=== PATIENT | male | born 1935 | race Caucasian/White ===

== ENCOUNTER → 2020-06-12 14:00 | Outpatient (BNVA) | payer MEDICARE, SELFPAY | PROVIDERS: PCP Internal Medicine; Visit Provider Internal Medicine Cardiovascular Disease | DX: I48.91 Unspecified atrial fibrillation (principal) | CPT/HCPCS: 93005; 99212 ==

== ENCOUNTER 2020-11-10 13:01 | Outpatient (REF) | payer MEDICARE, SELFPAY ==
[2020-11-10 14:16] LABS: MANUAL DIFF FLAG NO
[2020-11-10 14:26] LABS: Basophils Percent Auto 0.4 % (0-2); Eosinophils Absolute Auto 0.2 X10*3/uL (0.0-0.4); Eosinophils Percent Auto 2.9 % (0-4); Hematocrit 41.1 % (42-52); Hemoglobin 14.1 g/dl (14.0-18.0); Imm Gran Abs Auto 0.02 X10*3/uL (0.00-0.03); Imm Gran Pct Auto 0.3 % (0.0-0.4); Lymphocytes Absolute Auto 1.6 X10*3/uL (1.2-4.9); Lymphocytes Percent Auto 20.7 % (20-40); Mean Corpuscular HGB Conc 34.3 g/dl (31.0-36.0); Mean Corpuscular Hemoglobin 31.3 pg (27.0-33.0); Mean Corpuscular Volume 91.3 fL (80-98); Mean Platelet Volume 14.1 fL (9.4-12.4); Monocytes Absolute Auto 0.7 X10*3/uL (0.1-1.2); Monocytes Percent Auto 8.6 % (2-11); Neutrophils Absolute Auto 5.3 X10*3/uL (2.0-8.3); Neutrophils Percent Auto 67.1 % (45-73); Platelet Count 172 X10*3/uL (160-400); Red Cell Distribution Width 12.9 % (11.0-16.0); White Blood Count 7.9 X10*3/uL (4.8-10.8)
[2020-11-10 15:30] LABS: Alanine Aminotransferase 17 U/L (0-40); Alkaline Phosphatase 74 U/L (39-117); Anion Gap 16 (12-20); Aspartate Amino Transferase 16 U/L (5-37); Blood Urea Nitrogen 34 mg/dL (9-16); Calcium 9.2 mg/dL (8.4-10.2); Carbon Dioxide 21 mmol/L (22-29); Chloride 101 mmol/L (96-108); Estimated Glomerular Filt Rate 32; Glucose Random 99 mg/dL (60-115); Sodium 133 mmol/L (135-145); Total Protein 6.4 g/dL (6.5-8.0)
== END 2020-11-10 13:02 | disposition home or self-care (01) ==
LOC: HO.LAB 13:01
PROVIDERS: PCP Internal Medicine; Visit Provider Internal Medicine
DX: E78.00 Pure hypercholesterolemia, unspecified (principal); I48.19 Other persistent atrial fibrillation; I12.9 Hypertensive chronic kidney disease with stage 1 through stage 4 chronic kidney disease, or unspecified chronic kidney disease; N18.9 Chronic kidney disease, unspecified; Z79.01 Long term (current) use of anticoagulants
CPT/HCPCS: 36415; 80053; 85025

== ENCOUNTER 2021-03-12 14:09 | Outpatient (REF) | payer MEDICARE, SELFPAY ==
[2021-03-12 15:11] LABS: MANUAL DIFF FLAG SCAN; Monocytes Absolute Auto 0.8 X10*3/uL (0.1-1.2); Monocytes Percent Auto 8.4 % (2-11); SCAN SMEAR FLAG 1
[2021-03-12 15:13] LABS: Basophils Percent Auto 0.4 % (0-2); Eosinophils Absolute Auto 0.2 X10*3/uL (0.0-0.4); Eosinophils Percent Auto 2.6 % (0-4); Hematocrit 41.6 % (42-52); Hemoglobin 14.5 g/dl (14.0-18.0); Imm Gran Abs Auto 0.03 X10*3/uL (0.00-0.03); Imm Gran Pct Auto 0.3 % (0.0-0.4); Lymphocytes Absolute Auto 1.5 X10*3/uL (1.2-4.9); Lymphocytes Percent Auto 16.5 % (20-40); Mean Corpuscular HGB Conc 34.9 g/dl (31.0-36.0); Mean Corpuscular Hemoglobin 31.4 pg (27.0-33.0); Neutrophils Absolute Auto 6.4 X10*3/uL (2.0-8.3); Neutrophils Percent Auto 71.8 % (45-73); Platelet Count 159 X10*3/uL (160-400); Red Blood Count 4.62 X10*6/uL (4.60-5.80); Red Cell Distribution Width 12.9 % (11.0-16.0)
[2021-03-12 15:24] LABS: PLT ABN DIST 1
[2021-03-12 15:33] LABS: Alanine Aminotransferase 16 U/L (0-40); Albumin Level 4.2 g/dL (3.5-5.0); Alkaline Phosphatase 78 U/L (39-117); Anion Gap 16 (12-20); Aspartate Amino Transferase 19 U/L (5-37); Bilirubin Total 0.9 mg/dL (0.0-1.0); Blood Urea Nitrogen 27 mg/dL (9-16); Calcium 9.1 mg/dL (8.4-10.2); Carbon Dioxide 21 mmol/L (22-29); Chloride 97 mmol/L (96-108); Estimated Glomerular Filt Rate 32; Glucose Random 96 mg/dL (60-115); Potassium 4.5 mmol/L (3.3-5.1); Sodium 129 mmol/L (135-145); Total Protein 6.5 g/dL (6.5-8.0)
[2021-03-12 15:36] LABS: SLIDE REVIEW VERIFIED
== END 2021-03-12 14:10 | disposition home or self-care (01) ==
LOC: HO.LAB 14:09
PROVIDERS: PCP Internal Medicine; Visit Provider Internal Medicine
DX: E78.00 Pure hypercholesterolemia, unspecified (principal); I12.9 Hypertensive chronic kidney disease with stage 1 through stage 4 chronic kidney disease, or unspecified chronic kidney disease; N18.9 Chronic kidney disease, unspecified; I48.19 Other persistent atrial fibrillation; K22.70 Barrett's esophagus without dysplasia; Z79.01 Long term (current) use of anticoagulants
CPT/HCPCS: 36415; 80053; 85025

== ENCOUNTER 2021-06-07 10:29 | Inpatient (IN) | payer MEDICARE, SELFPAY ==
[2021-06-07] VITALS (8 sets, daily range): BP systolic 99–140; BP diastolic 60–78; PULSE 82–114; RESP 16–26; TEMP 36.6–37; O2SAT 92–95; BMI 29.7
--- NOTE | ~2021-06-07 | XR_ITS ---
EXAMINATION: XR CHEST CLINICAL INFORMATION: Shortness of breath, pneumonia COMPARISON: Chest radiographs 07/13/2018 TECHNIQUE: Portable upright AP view of the chest was obtained. FINDINGS: Heart is normal in size. The vascularity is normal. There is mild coarsening bronchiolar markings. No hyperinflation and no lobar or segmental airspace consolidation or effusion. No definite groundglass opacity. Short disc atelectasis right lateral base. The hilar and mediastinal contours are normal. No visible acute bony abnormality. XR/XR chest 1V IMPRESSION: 1. Mild coarsening bronchiolar markings. Disc atelectasis right base. 2. No vascular engorgement, airspace consolidation, or effusion. Disc atelectasis right base.
--- NOTE | ~2021-06-07 | XR_ITS ---
EXAMINATION: XR CHEST CLINICAL INFORMATION: Acute hypoxemia and respiratory failure secondary to Covid. COMPARISON: None TECHNIQUE: Frontal view of the chest was obtained. FINDINGS: The lungs are expanded with scattered patchy density seen in both upper lobes suspicious for infiltrate. There is no contrast consolidation. There is no pleural effusion. The heart size is enlarged with normal pulmonary vascularity. No gross bony abnormality seen. XR/XR chest 1V IMPRESSION: Scattered patchy density in both upper lobes suggestive of infiltrates.
--- NOTE | ~2021-06-07 | XR_ITS ---
EXAMINATION: XR CHEST CLINICAL INFORMATION: Increased work of breathing. Hypoxia. COMPARISON: 06/10/2021 TECHNIQUE: Frontal view of the chest was obtained. FINDINGS: Cardiac leads overlie the chest. The lungs are well expanded. Diffuse bronchial wall thickening with hazy opacities. This is worse when compared to previous. There is no focal consolidation, edema, or effusion. No pneumothorax. The cardiomediastinal silhouette is within normal limits. No acute osseous abnormality. XR/XR chest 1V IMPRESSION: Diffuse bronchial wall thickening with hazy opacities, worse when compared to prior suggestive of infectious or inflammatory process.
--- NOTE | ~2021-06-07 | CT_ITS ---
EXAMINATION: CT CHEST WITHOUT CONTRAST CLINICAL INFORMATION: COVID pneumonia. COMPARISON: Chest x-ray 06/07/2021 TECHNIQUE: Multidetector volumetric CT imaging of the chest was done. Axial MIP volume rendering provided. Sagittal and coronal reformatted images were obtained. This CT examination was performed using dose optimization techniques as appropriate, variously including the following: *Automated exposure control *Adjustment of mA and/or kV according to patient size (this includes techniques or standardized protocols for targeted exams where dose is matched to indication/reason for exam; i.e. extremities or head) *Use of iterative reconstruction technique DLP: 280 mGy-cm FINDINGS: EARTH SCIENCE PROFESSOR: Well-inflated lungs. LUNGS: The lungs are expanded with patchy groundglass attenuation seen in the dependent segments of both upper lobes right greater than left, dependent segment right lower lobe lateral, lateral lingula segment and dependent segments of both lung bases suspicious of diffuse inflammatory changes/infiltrate. There is focal bronchiectasis left lower lobe posterior basal segment. There is a 3 mm fuzzy nodule in the right right middle lobe adjacent to the major fissure on image 31/4. This may represent part of developing infiltrate or atelectasis. MEDIASTINUM: The thyroid lobes are symmetric and normal. The central trachea and the bronchi widely patent. The heart size and great vessels are normal caliber. There are small shotty lymph nodes in the para-aortic and pretracheal space. The largest short axis para-aortic lymph node measures 6 mm on axial image 22/3. A small hiatal hernia is noted. PLEURA: There is minimal left posterior pleural thickening. There is no pleural effusion.. AXILLA: No lymphadenopathy. UPPER ABDOMEN: Unremarkable. OSSEOUS STRUCTURES: No lytic or sclerotic process seen. There is mild spondylosis mid and lower ventral dorsal spine. CT/CT chest wo con IMPRESSION: Diffuse bilateral patchy groundglass attenuation seen throughout both lungs consistent with infiltrates. There are small mediastinal lymph nodes which are likely reactive and measure less than 6 mm in short axis. Small hiatal hernia. Fleischner guidelines were followed.
--- NOTE | 2021-06-07 10:37 | ECG_ITS ---
Test Reason : SOB Blood Pressure : / mmHG Vent. Rate : 103 BPM Atrial Rate : 000 BPM P-R Int : 000 ms QRS Dur : 088 ms QT Int : 334 ms P-R-T Axes : 000 -28 -31 degrees QTc Int : 437 ms Atrial fibrillation with rapid ventricular response Minimal voltage criteria for LVH, may be normal variant ( R in aVL ) ST & T wave abnormality, consider anterior ischemia Abnormal ECG When compared with ECG of 19-JUN-2018 22:16, Inverted T waves have replaced nonspecific T wave abnormality in Inferior leads T wave inversion now evident in Anterior leads Referred By: Generic ED Physician Electronically Signed By:TORIN LEON MD
[2021-06-07 12:12] LABS: MANUAL DIFF FLAG NO
[2021-06-07 12:14] LABS: Basophils Percent Auto 0.3 % (0-2); Eosinophils Percent Auto 0.1 % (0-4); Hematocrit 42.5 % (42.0-52.0); Hemoglobin 14.5 g/dl (14.0-18.0); Imm Gran Abs Auto 0.02 X10*3/uL (0.00-0.03); Imm Gran Pct Auto 0.3 % (0.0-0.4); Lymphocytes Absolute Auto 0.5 X10*3/uL (1.2-4.9); Lymphocytes Percent Auto 6.2 % (20-40); Mean Corpuscular HGB Conc 34.1 g/dl (31.0-36.0); Mean Corpuscular Hemoglobin 31.1 pg (27.0-33.0); Mean Corpuscular Volume 91.2 fL (80.0-98.0); Mean Platelet Volume 12.5 fL (9.4-12.4); Monocytes Absolute Auto 0.4 X10*3/uL (0.1-1.2); Monocytes Percent Auto 5.7 % (2-11); Neutrophils Absolute Auto 6.8 x10*3/uL (2.0-8.3); Neutrophils Percent Auto 87.4 % (45-73); Platelet Count 124 X10*3/uL (160-400); Red Blood Count 4.66 X10*6/uL (4.60-5.80); White Blood Count 7.7 X10*3/uL (4.8-10.8)
[2021-06-07 12:22] LABS: COVID-19 Test Positive (Negative); IDNOW Serial# 9DD0AD1C; INTERNATIONAL NORM RATIO 2.2 (0.9-1.1); Prothrombin Time 24.9 SEC (9.9-13.0)
[2021-06-07 12:25] LABS: Partial Thromboplastin Time 40.8 SEC (24.1-38.0)
--- NOTE | 2021-06-07 12:26 | ED_ITS ---
HPI - SOB/Dyspnea General Chief Complaint: Dyspnea Stated Complaint: diff breathing Time Seen by Provider: 06/07/21 11:29 Source: patient Mode of arrival: ambulatory Limitations: no limitations History of Present Illness HPI Narrative: 85-year-old male with past medical history of atrial fibrillation presents to ED for chills, body ache, dry cough, and shortness of breath on exertion for 1 week. Patient unknown of any exposure to COVID and denies any recent long travel, leg swelling, calf pain, coughing up blood, or chest pain. Patient states he is vaccinated against the COVID-19 virus. Related Data Home Medications Medication Instructions Recorded Confirmed apixaban 5 mg tablet 5 mg PO BID 06/12/20 06/07/21 metoprolol succinate 50 mg 50 mg PO DAILY 06/12/20 06/07/21 tablet,extended release 24 hr omeprazole 20 mg capsule,delayed 20 mg PO DAILY 06/12/20 06/07/21 release simvastatin 20 mg tablet 20 mg PO BEDTIME 06/12/20 06/07/21 lisinopril 10 mg tablet 1 tab PO DAILY 06/07/21 06/07/21 Allergies Allergy/AdvReac Type Severity Reaction Status Date / Time No Known Allergies Allergy Unverified 03/09/20 19:34 [No Known Allergies*] Review of Systems Review of Systems: Yes all other systems are reviewed and are negative Constitutional: Constitutional: Reports as per HPI, Reports no additional constitutional complaints, Reports body ache(s) and Reports chills Eyes: Eyes: Reports as per HPI and Reports no additional eye complaints ENT: Reports system reviewed and no additional complaints, except as documented and Reports as per HPI Cardiovascular: Cardiovascular: Reports as per HPI, Reports no additional c ardiovascular complaints and Reports dyspnea Respiratory: Respiratory: Reports as per HPI, Reports no additional respiratory complaints, Reports cough and Reports dyspnea Gastrointestinal: Gastrointestinal: Reports as per HPI and Reports no additional gastrointestinal complaints Genitourinary: Genitourinary: Reports no additional male genitourinary complaints and Reports as per HPI Musculoskeletal: Musculoskeletal: Reports no additional musculoskeletal complaints and Reports as per HPI Neurologic: Reports system reviewed and no additional complaints, except as documented and Reports as per HPI Psychiatric: Psychiatric: Reports no additional psychiatric complaints and Reports as per HPI [facility] Past Medical History Medical History Afib Hiatal hernia Surgical History History of total left knee replacement (TKR) Hx of cholecystectomy Social History Social History Patient Tobacco Use Status: Former Tobacco user Physical Exam Vital Signs: Vital Signs: Last Vital Signs Temp 98 F 06/07/21 17:15 Pulse 96 06/07/21 17:15 Resp 18 06/07/21 17:15 BP 140/70 H 06/07/21 17:15 Pulse Ox 95 06/07/21 17:15 BMI result Body Mass Index 29.7 Const: General: cooperative, healthy appearing, comfortable, no acute di stress, well developed, alert, awake and Physically active Orientation/consciousness: patient oriented x3 HENMT: Head: Yes normal to inspection, Yes No palpable skull fracture present, Yes normocephalic, Yes atraumatic and No abrasion Eyes: General: appearance normal, both eyes and all related structures Neck: Neck: Yes normal visual inspection, Yes full ROM, Yes no lymphadenopathy, Yes no meningeal signs, Yes trachea midline, No supple, No anterior neck swelling and No tender Chest: Chest palpation & inspection: normal inspection of the chest and normal palpation of entire chest wall Resp: Effort & Inspection: normal respiratory effort and able to speak in complete sentences Auscultation: clear to auscultation bilaterally Cardio: Jugular venous distension: no JVD Heart sounds: S1 normal heart sound present and S2 normal heart sound present GI: Inspection: Yes normal to inspection and No abdominal wall ecchymosis Palpation (GI): Soft to palpation, not firm, nontender, no guarding and not rigid : General: No CVA tenderness and Yes no CVA tenderness Back/Spine/Pelvis: Back: no CVA tenderness, No CVA tenderness and No back tenderness Skin: General skin exam: no rashes or lesions noted and elasticity normal Neuro: General: patient oriented x3, gait normal, no meningeal signs and CN's II-XI intact bilaterally Cranial nerves: Yes CN's II-XII intact bilaterally Extrem: Other: Lower extremities negative for swelling, pitting edema,or calf General: Yes normal to inspection and Yes full ROM Psych: Appearance: grossly normal, well kempt and not disheveled Course Course Course Narrative: Patient's symptoms sound like infectious but due to age will do cardiac evaluation, chest x-ray, and COVID swab. Reevaluation(s) Reevaluation #1: Patient's COVID swab positive. Will re-evaluate patient. Will do ambulatory oxygen saturation Time: 12:31 Reevaluation #2: Cannot do chest CTA due to patient's GFR of 24. Patient desaturated to 90% with shortness of breath on exertion. Dry chest CT shows COVID pneumonia. Decadron started. Time: 15:10 Reevaluation #3: Patient admitted to the ED for COVID pneumonia. MDM - SOB/Dyspnea MDM Narrative Medical decision making narrative: COVID Lab Data Result diagrams: 06/07/21 12:03 06/07/21 12:38 Labs: Lab Results 06/07/21 06/07/21 06/07/21 Range/Units 12:03 12:03 12:03 WBC 7.7 (4.8-10.8) X10*3/uL RBC 4.66 (4.60-5.80) X10*6/uL Hgb 14.5 (14.0-18.0) g/dl Hct 42.5 (42.0-52.0) % MCV 91.2 (80.0-98.0) fL MCH 31.1 (27.0-33.0) pg MCHC 34.1 (31.0-36.0) g/dl RDW 13.0 (11.0-16.0) % Plt Count 124 L (160-400) X10*3/uL MPV 12.5 H (9.4-12.4) fL Immature Gran % (Auto) 0.3 (0.0-0.4) % Neut % (Auto) 87.4 H (45-73) % Lymph % (Auto) 6.2 L (20-40) % [place] % (Auto) 5.7 (2-11) % Eos % (Auto) 0.1 (0-4) % Baso % (Auto) 0.3 (0-2) % Lymph # (Auto) 0.5 L (1.2-4.9) X10*3/uL [place] # (Auto) 0.4 (0.1-1.2) X10*3/uL Eos # (Auto) 0.0 (0.0-0.4) X10*3/uL Baso # (Auto) 0.0 (0.0-0.2) X10*3/uL Abs Immat Gran (auto) 0.02 (0.00-0.03) X10*3/uL Absolute Neuts (auto) 6.8 (2.0-8.3) x10*3/uL Absolute Nucleated RBC 0.000 (0.0-0.012) X10*3/uL Nucleated RBC % (auto) 0.0 (0.0-0.2) /100WBC PT 24.9 H (9.9-13.0) SEC INR 2.2 H (0.9-1.1) APTT 40.8 H (24.1-38.0) SEC Sodium (135-145) mmol/L Potassium (3.3-5.1) mmol/L Chloride (96-108) mmol/L Carbon Dioxide (22-29) mmol/L Anion Gap (12-20) BUN (9-16) mg/dL Creatinine (0.5-1.4) mg/dL Estim Creat Clear Calc Estimated GFR Random Glucose (60-115) mg/dL Calcium (8.4-10.2) mg/dL Ferritin (20-250) ng/mL Total Bilirubin (0.0-1.0) mg/dL AST (5-37) U/L ALT (0-40) U/L Alkaline Phosphatase (39-117) U/L Lactate Dehydrogenase (118-273) U/L Troponin I High Sens 19.3 (<3.5-35.0) ng/L C-Reactive Protein (< or = 0.50) mg/dL B-Natriuretic Peptide 58 (<100) pg/mL Total Protein (6.5-8.0) g/dL Albumin (3.5-5.0) g/dL Procalcitonin ng/mL COVID-19 (DIONNE) (Negative) COVID-19 Clin Com 06/07/21 06/07/21 06/07/21 Range/Units 12:03 12:38 12:38 WBC (4.8-10.8) X10*3/uL RBC (4.60-5.80) X10*6/uL Hgb (14.0-18.0) g/dl Hct (42.0-52.0) % MCV (80.0-98.0) fL MCH (27.0-33.0) pg MCHC (31.0-36.0) g/dl RDW (11.0-16.0) % Plt Count (160-400) X10*3/uL MPV (9.4-12.4) fL Immature Gran % (Auto) (0.0-0.4) % Neut % (Auto) (45-73) % Lymph % (Auto) (20-40) % [place] % (Auto) (2-11) % Eos % (Auto) (0-4) % Baso % (Auto) (0-2) % Lymph # (Auto) (1.2-4.9) X10*3/uL [place] # (Auto) (0.1-1.2) X10*3/uL Eos # (Auto) (0.0-0.4) X10*3/uL Baso # (Auto) (0.0-0.2) X10*3/uL Abs Immat Gran (auto) (0.00-0.03) X10*3/uL Absolute Neuts (auto) (2.0-8.3) x10*3/uL Absolute Nucleated RBC (0.0-0.012) X10*3/uL Nucleated RBC % (auto) (0.0-0.2) /100WBC PT (9.9-13.0) SEC INR (0.9-1.1) APTT (24.1-38.0) SEC Sodium 133 L (135-145) mmol/L Potassium 4.3 (3.3-5.1) mmol/L Chloride 102 (96-108) mmol/L Carbon Dioxide 21 L (22-29) mmol/L Anion Gap 14 (12-20) BUN 36 H (9-16) mg/dL Creatinine 2.59 H (0.5-1.4) mg/dL Estim Creat Clear Calc 22.6 Estimated GFR 24 Random Glucose 117 H (60-115) mg/dL Calcium 8.5 D (8.4-10.2) mg/dL Ferritin 359 H (20-250) ng/mL Total Bilirubin 1.0 (0.0-1.0) mg/dL AST 34 D (5-37) U/L ALT 24 (0-40) U/L Alkaline Phosphatase 73 (39-117) U/L Lactate Dehydrogenase 290 H (118-273) U/L Troponin I High Sens (<3.5-35.0) ng/L C-Reactive Protein 10.45 H (< or = 0.50) mg/dL B-Natriuretic Peptide (<100) pg/mL Total Protein 6.4 L (6.5-8.0) g/dL Albumin 3.6 (3.5-5.0) g/dL Procalcitonin 0.40 ng/mL COVID-19 (DIONNE) Positive A (Negative) COVID-19 Clin Com See Note ECG Data Interpretation: Atrial fibrillation with RVR. Reticular 103. QRS 88. QTC 437. Negative Stemi Discharge Plan Discharge Clinical Impression: Acute kidney injury Patient Disposition: Admitted As Inpatient Interventions: Admission Worksheet (ED) Last Done: 06/07/21 17:01 Discharge Date/Time: 06/07/21 17:02
[2021-06-07 12:41] LABS: B Type Natriuretic Peptide 58 pg/mL (<100); Troponin-I High Sensitivity 19.3 ng/L (<3.5-35.0)
[2021-06-07 13:01] LABS: Alanine Aminotransferase 24 U/L (0-40); Albumin Level 3.6 g/dL (3.5-5.0); Alkaline Phosphatase 73 U/L (39-117); Anion Gap 14 (12-20); Aspartate Amino Transferase 34 U/L (5-37); Blood Urea Nitrogen 36 mg/dL (9-16); Calcium 8.5 mg/dL (8.4-10.2); Carbon Dioxide 21 mmol/L (22-29); Chloride 102 mmol/L (96-108); Creatinine Clr Calc Pharmacy 22.6; Estimated Glomerular Filt Rate 24; Glucose Random 117 mg/dL (60-115); Lactate Dehydrogenase 290 U/L (118-273); Potassium 4.3 mmol/L (3.3-5.1); Sodium 133 mmol/L (135-145); Total Protein 6.4 g/dL (6.5-8.0)
[2021-06-07 13:21] LABS: Ferritin 359 ng/mL (20-250)
[2021-06-07] MEDS: 0.9 % Sodium Chloride Flush 3 ML SYRINGE IVFLUSH ×2 (15:59→20:18)
[2021-06-07] MEDS: 0.9 % Sodium Chloride 1,000 ML 999 ML IV (15:59)
[2021-06-07] MEDS: dexAMETHasone sod phosphate 10 MG/ML VIAL IVPUSH (15:59)
--- NOTE | 2021-06-07 16:04 | PM.IMHP ---
History of Present Illness Date of Service: 06/07/21 Attending physician on admission: Maureen Ramos Chief Complaint: doris , covid pneumonia 85-year-old male with past medical history of chronic AFib, hypertension, hypercholesteremia, patient said that he had COVID vaccines back in , did not received booster yet. Patient is having generally weak and decreased p.o. intake as well as more sleepiness from last week or so. he also has somewhat shortness of breath with walking from 5-6 days as per the patient. patient says that he has cough with clear sputum but otherwise denies any fever or any sick contacts or recent travel or going to and [employer]. ED physician given the admission for COVID pneumonia- patient saturation dropped to 90 with walking. Denies any new complaint of chest pain or abdominal pain or chills or nausea or vomiting or diarrhae Denies any cough Denies any weakness or numbness. Lab imaging reviewed: ekg seems similar but has t wave inversion in antieror leads trops normal ct chest: possible pneumonia has doris also Review of Systems Review of Systems: as above. Yes all other systems are reviewed and are negative [facility] Medical History Afib Hiatal hernia Pertinent family history: denies any family member has COVID. Surgical History History of total left knee replacement (TKR) Hx of cholecystectomy Social History Patient Tobacco Use Status: Former Tobacco user Use of substances other than those prescribed or required for medical reasons: No Advance Directives: Yes Advance Directives Information Provided: No Advance Directives on File: No Meds Allergies Allergy/AdvReac Type Severity Reaction Status Date / Time No Known Allergies Allergy Unverified 03/09/20 19:34 [No Known Allergies*] Active Medications: Current Medications Dexamethasone Sodium Phosphate (Dexamethasone Sod Phosphate 4 Mg/Ml Vial) 6 mg IVPUSH DAILY VERO Sodium Chloride (Ns) 1,000 mls @ 999 mls/hr IV .Q1H1M STA Stop: 06/07/21 16:27 Last Admin: 06/07/21 15:59 Dose: 999 mls/hr Documented by: Pharmacy Consult (Consult Rx Perform Med Rec) 1 each MISCELLANE ONCE PRN PRN Reason: Consult order Sodium Chloride (0.9 % Sodium Chloride Flush 3 Ml Syringe) 3 ml IVFLUSH QSHIFT [facility] Last Admin: 06/07/21 15:59 Dose: 3 ml Documented by: Home Medications Medication Instructions Recorded Confirmed Last Taken Type apixaban 5 mg tablet 5 mg PO BID 06/12/20 06/07/21 Unknown History metoprolol succinate 50 mg 50 mg PO DAILY 06/12/20 06/07/21 Unknown History tablet,extended release 24 hr omeprazole 20 mg capsule,delayed 20 mg PO DAILY 06/12/20 06/07/21 Unknown History release simvastatin 20 mg tablet 20 mg PO BEDTIME 06/12/20 06/07/21 Unknown History lisinopril 10 mg tablet 1 tab PO DAILY 06/07/21 06/07/21 Unknown History Physical Exam Vital Signs and Narrative: Vital Signs: Last Vital Signs Temp 98.0 F 06/07/21 11:27 Pulse 84 06/07/21 15:59 Resp 20 06/07/21 15:59 BP 108/63 06/07/21 15:59 Pulse Ox 95 06/07/21 15:59 BMI result Body Mass Index 29.7 physical exam: Appearance: Alert.? Oriented X3.? not in distress.? Eyes: Pupils equal, round and reactive to light.? Sclera nonicteric.? ENT: Pharynx normal.? Moist mucous membranes. cvs: rrr, [id number] , no murmur res: fair air entry ,no rhonchii or wheezing abd: no rebound or guarding ,nt, bs present. ext pulses present , no cyanosis . neuro: axo3 , nonfocal. Results Labs CBC and Chem 7: 06/07/21 12:03 06/07/21 12:38 Labs: Laboratory Results - last 24 hr 06/07/21 06/07/21 06/07/21 12:03 12:03 12:03 MCV 91.2 MCH 31.1 MCHC 34.1 RDW 13.0 Plt Count 124 L MPV 12.5 H Immature Gran % (Auto) 0.3 Neut % (Auto) 87.4 H Lymph % (Auto) 6.2 L [place] % (Auto) 5.7 Eos % (Auto) 0.1 Baso % (Auto) 0.3 Lymph # (Auto) 0.5 L [place] # (Auto) 0.4 Eos # (Auto) 0.0 Baso # (Auto) 0.0 Abs Immat Gran (auto) 0.02 Absolute Neuts (auto) 6.8 Absolute Nucleated RBC 0.000 Nucleated RBC % (auto) 0.0 PT 24.9 H INR 2.2 H APTT 40.8 H Anion Gap Estim Creat Clear Calc Estimated GFR Random Glucose Calcium Ferritin Total Bilirubin AST ALT Alkaline Phosphatase Lactate Dehydrogenase Troponin I High Sens 19.3 B-Natriuretic Peptide 58 Total Protein Albumin Procalcitonin COVID-19 (DIONNE) COVID-19 Clin Com 06/07/21 06/07/21 06/07/21 12:03 12:38 12:38 MCV MCH MCHC RDW Plt Count MPV Immature Gran % (Auto) Neut % (Auto) Lymph % (Auto) [place] % (Auto) Eos % (Auto) Baso % (Auto) Lymph # (Auto) [place] # (Auto) Eos # (Auto) Baso # (Auto) Abs Immat Gran (auto) Absolute Neuts (auto) Absolute Nucleated RBC Nucleated RBC % (auto) PT INR APTT Anion Gap 14 Estim Creat Clear Calc 22.6 Estimated GFR 24 Random Glucose 117 H Calcium 8.5 D Ferritin 359 H Total Bilirubin 1.0 AST 34 D ALT 24 Alkaline Phosphatase 73 Lactate Dehydrogenase 290 H Troponin I High Sens B-Natriuretic Peptide Total Protein 6.4 L Albumin 3.6 Procalcitonin 0.40 COVID-19 (DIONNE) Positive A COVID-19 Clin Com See Note Imaging Radiologist's Impressions: Impressions Chest X-Ray 06/07/21 12:20 IMPRESSION: 1. Mild coarsening bronchiolar markings. Disc atelectasis right base. 2. No vascular engorgement, airspace consolidation, or effusion. Disc atelectasis right base. Chest CT 06/07/21 13:39 IMPRESSION: Diffuse bilateral patchy groundglass attenuation seen throughout both lungs consistent with infiltrates. There are small mediastinal lymph nodes which are likely reactive and measure less than 6 mm in short axis. Small hiatal hernia. Fleischner guidelines were followed. Assessment and Plan (1) DORIS (acute kidney injury): Status: Acute (2) COVID: Status: Acute 1. COVID pneumonia: had COVID vaccine in Continue Decadron id eval 2. DORIS on ckd: probably related to poor appetite, dehydration, Also might be covid infection contributing to it. patient is receiving fluids iv. hold off lisinopril 3.afib:continue metoprolol, apixiban 4. ekg abnormal: trops x1 neg , next draw pendin no chest pain nuclear stress test : was normal will add echo if any chest pain or significant increase in troponin -will add asa and may need cardio eval 5 HLP: continue statin dvt prophylax: with apixiban 1 Patient management discussed with patient in detail length including COVID pneumonia, EKG abnormality and a KI- patient understand and in agreement with the above plan, code status is full code. Time spent 70 minute. Quality Stroke Does the patient have a stroke diagnosis?: No VTE Prior VTE?: No VTE Risk Level:: Medical - moderate - high VTE Device Contraindication: N/A - Device Ordered VTE Drug Contraindication: N/A - Med Ordered
[2021-06-07 16:14] LABS: C Reactive Protein 10.45 mg/dL (< or = 0.50)
[2021-06-07] MEDS: Atorvastatin Calcium 10 MG TABLET PO (20:18)
[2021-06-07] MEDS: Apixaban 5 MG TABLET PO (20:18)
[2021-06-08] VITALS (8 sets, daily range): BP systolic 118–183; BP diastolic 65–91; PULSE 70–114; RESP 16–20; TEMP 36.7–39.3; O2SAT 90–95
[2021-06-08] MEDS: Omeprazole 20 MG CAPSULE.DR PO (06:14)
--- NOTE | 2021-06-08 08:30 | CA_ITS ---
Transthoracic Echocardiogram Patient (Last, First, Middle): Brijesh Luciano J Gender: Male Date of : 1935 Age: 85 Procedure Date: 06/08/2021 Procedure Type: [place]ansthoracic [place] [facility] [place]: 170.18 cm Weight: 86.18 kg BSA: 1.98 m2 Heart Rate: bpm BP: 119 / 70 mmHg First Line Production Supervisor: Referring MD: Maureen Ramos MD Mechanical Supervisor: John Barger MD Symptoms: Covid +, abnormal ekg Study Quality: Fair ECG Rhythm: Atrial Fibrillation Conclusions: - 1. Low normal LV systolic function with LVEF of 50-55% 2. Left atrium appears to be enlarged 3. Limited cardiac valvular Doppler 4. Normal RV systolic pressure 5. No gross pericardial effusion Findings Left Ventricle Normal left ventricular cavity size. There is moderately increased left ventricular wall thickness. The left ventricular systolic function is low normal. The visually estimated ejection fraction is between 50-55%. Diastolic function is indeterminate on the basis of available data. Right Ventricle Normal right ventricular cavity size and systolic function. Atria Interatrial shunt cannot be excluded. Size was not measured. Appeears to be enlarged. Aortic Valve There is mild calcification of the aortic valve. There is mild thickening of the aortic valve. no measurements were made Mitral Valve There is mild anterior and posterior mitral leaflet thickening. There is trace mitral valve regurgitation. There is no mitral valve stenosis. Pulmonic Valve The pulmonic valve was not well visualized. Tricuspid Valve There is trace tricuspid valve regurgitation. The right ventricular systolic pressure is 35 mmHg. There is no evidence of pulmonary hypertension. Great Vessels The aorta was not well visualized. The pulmonary artery was not well visualized. Venous The inferior vena cava was not well visualized. Pericardium/Pleural There is no evidence of pericardial effusion. Prior Study Comparison Changes noted compared to prior study dated: 07/16/2018. LV systolic function is marginally reduced, could be related to atrial fibrillation and rapid ventricular response. Limited cardiac valvular Doppler is Measurements 2D Linear Measurements IVSd: 1.54 0.6-0.9/0.6-1.0 cm LVIDd: 3.48 3.9-5.3/4.2-5.9 cm LVIDd Index: 1.76 2.4-3.2/2.2-3.1 cm/m2 LVIDs: 2.27 2.0-3.6 cm LVPWd: 1.44 0.7-1.1 cm LV Mass: 236.54 67-162/88-224 g LV Mass Index: 119.46 43-95/49-115 g/m2 2D Systolic Function EF 4C: 47.20 >55% EF 2C: 43.10 >55% Mitral Valve MV Pk E: 0.89 MV Decel Time: 143.00 E'Medial: 10.90 E/E' Med: 8.20 PHT: 42.00 MVA PHT: 5.24 Decel Schley: 6.25 Diastolic Function MV Pk E: 0.89 E'Medial: 10.90 E/E' Med: 8.20 Right Ventricle TAPSE (mm): 24.00 Tricuspid Valve TR Pk Ac: 2.83 TR Pk Grad: 32.00 RA Press: 3.00 RVSP: 35.00 Updated in Other Vendor System with Status of Final John Barger MD electronically signed on 06/09/2021 11:12:04 AM with status of Final
--- NOTE | 2021-06-08 08:32 | MHC.CM.PN ---
Patient is Covid (+) and not reachable by phone at this time.CM spoke with Significant Other/Bronwyn at [phone] and addressed KING with her (she had already been told by Patient that he is here under Observation).Original KING will be mailed to Bronwyn and a copy has been placed on the chart .Patient lives in a house with Bronwyn and he required no services nor DME CANOPY INSPECTOR. Patient's goal is to return home and CM has initiated and will follow for dc planning. PCP is DR.Purnima Rowe and Daughters/Vijaya and Randee are HCPs.
[2021-06-08 09:37] LABS: Anion Gap 13 (12-20); Blood Urea Nitrogen 37 mg/dL (9-16); Calcium 8.8 mg/dL (8.4-10.2); Carbon Dioxide 22 mmol/L (22-29); Chloride 102 mmol/L (96-108); Creatinine Clr Calc Pharmacy 31.3; Estimated Glomerular Filt Rate 35; Glucose Random 162 mg/dL (60-115); Potassium 4.4 mmol/L (3.3-5.1); Sodium 133 mmol/L (135-145)
[2021-06-08] MEDS: 0.9 % Sodium Chloride Flush 3 ML SYRINGE IVFLUSH ×3 (09:52→19:57)
[2021-06-08] MEDS: Apixaban 5 MG TABLET PO ×2 (09:52→19:57)
[2021-06-08] MEDS: Metoprolol Succinate ER 50 MG TAB.ER.24H PO (09:52)
[2021-06-08] MEDS: dexAMETHasone sod phosphate 4 MG/ML VIAL 6 MG IVPUSH (09:52)
--- NOTE | 2021-06-08 10:15 | HO.PM.IMPN ---
Subjective Subjective Date of Service: 06/08/21 Interval History: doris on ckd , covid pneumonia Review of Systems patient still feels short of breath with walking, denies any chest pain or abdominal pain or fever or chills or nausea or vomiting or diarrhea. Physical Exam Vital Signs: Vital Signs: Last Vital Signs Temp 98.6 F 06/08/21 07:49 Pulse 105 H 06/08/21 09:52 Resp 20 06/08/21 07:49 BP 174/91 H 06/08/21 09:52 Pulse Ox 95 06/08/21 07:49 BMI result Body Mass Index 29.7 Appearance: Alert.? Oriented X3.? not in distress.? Eyes: Pupils equal, round and reactive to light.? Sclera nonicteric.? ENT: Pharynx normal.? Moist mucous membranes. cvs: rrr, [id number] , no murmur res: fair air entry ,no rhonchii or wheezing abd: no rebound or guarding ,nt, bs present. ext pulses present , no cyanosis . neuro: axo3 , nonfocal Objective Data Active Medications Amlodipine Besylate (Amlodipine Besylate 5 Mg Tablet) 5 mg PO DAILY [facility]; Protocol Apixaban (Apixaban 5 Mg Tablet) 5 mg PO BID [facility] Last Admin: 06/08/21 09:52 Dose: 5 mg Documented by: MARIELA Atorvastatin Calcium (Atorvastatin Calcium 10 Mg Tablet) 10 mg PO BEDTIME [facility] Last Admin: 06/07/21 20:18 Dose: 10 mg Documented by: BERTA Dexamethasone Sodium Phosphate (Dexamethasone Sod Phosphate 4 Mg/Ml Vial) 6 mg IVPUSH DAILY [facility] Last Admin: 06/08/21 09:52 Dose: 6 mg Documented by: MARIELA Metoprolol Succinate (Metoprolol Succinate Er 50 Mg Tab.Er.24h) 50 mg PO DAILY [facility]; Protocol Last Admin: 06/08/21 09:52 Dose: 50 mg Documented by: MARIELA Omeprazole (Omeprazole 20 Mg Capsule.) 20 mg PO DAILY@0630 [facility] Last Admin: 06/08/21 06:14 Dose: 20 mg Documented by: BERTA Pharmacy Consult (Consult Rx Perform Med Rec) 1 each MISCELLANE ONCE PRN PRN Reason: Consult order Sodium Chloride (0.9 % Sodium Chloride Flush 3 Ml Syringe) 3 ml IVFLUSH QSHIFT [facility] Last Admin: 06/08/21 09:52 Dose: 3 ml Documented by: MARIELA Labs CBC & Chem 7: 06/07/21 12:03 06/08/21 09:07 Labs: Laboratory Results - last 24 hr 06/07/21 06/07/21 06/07/21 12:03 12:03 12:03 MCV 91.2 MCH 31.1 MCHC 34.1 RDW 13.0 Plt Count 124 L MPV 12.5 H Immature Gran % (Auto) 0.3 Neut % (Auto) 87.4 H Lymph % (Auto) 6.2 L [place] % (Auto) 5.7 Eos % (Auto) 0.1 Baso % (Auto) 0.3 Lymph # (Auto) 0.5 L [place] # (Auto) 0.4 Eos # (Auto) 0.0 Baso # (Auto) 0.0 Abs Immat Gran (auto) 0.02 Absolute Neuts (auto) 6.8 Absolute Nucleated RBC 0.000 Nucleated RBC % (auto) 0.0 PT 24.9 H INR 2.2 H APTT 40.8 H Anion Gap Estim Creat Clear Calc Estimated GFR Random Glucose Calcium Ferritin Total Bilirubin AST ALT Alkaline Phosphatase Lactate Dehydrogenase Troponin I High Sens 19.3 C-Reactive Protein B-Natriuretic Peptide 58 Total Protein Albumin Procalcitonin COVID-19 (DIONNE) COVID-19 Clin Com 06/07/21 06/07/21 06/07/21 12:03 12:38 12:38 MCV MCH MCHC RDW Plt Count MPV Immature Gran % (Auto) Neut % (Auto) Lymph % (Auto) [place] % (Auto) Eos % (Auto) Baso % (Auto) Lymph # (Auto) [place] # (Auto) Eos # (Auto) Baso # (Auto) Abs Immat Gran (auto) Absolute Neuts (auto) Absolute Nucleated RBC Nucleated RBC % (auto) PT INR APTT Anion Gap 14 Estim Creat Clear Calc 22.6 Estimated GFR 24 Random Glucose 117 H Calcium 8.5 D Ferritin 359 H Total Bilirubin 1.0 AST 34 D ALT 24 Alkaline Phosphatase 73 Lactate Dehydrogenase 290 H Troponin I High Sens C-Reactive Protein 10.45 H B-Natriuretic Peptide Total Protein 6.4 L Albumin 3.6 Procalcitonin 0.40 COVID-19 (DIONNE) Positive A COVID-19 Clin Com See Note 06/07/21 06/08/21 17:47 09:07 MCV MCH MCHC RDW Plt Count MPV Immature Gran % (Auto) Neut % (Auto) Lymph % (Auto) [place] % (Auto) Eos % (Auto) Baso % (Auto) Lymph # (Auto) [place] # (Auto) Eos # (Auto) Baso # (Auto) Abs Immat Gran (auto) Absolute Neuts (auto) Absolute Nucleated RBC Nucleated RBC % (auto) PT INR APTT Anion Gap 13 Estim Creat Clear Calc 31.3 Estimated GFR 35 Random Glucose 162 H D Calcium 8.8 Ferritin Total Bilirubin AST ALT Alkaline Phosphatase Lactate Dehydrogenase Troponin I High Sens 12.0 C-Reactive Protein B-Natriuretic Peptide Total Protein Albumin Procalcitonin COVID-19 (DIONNE) COVID-19 Clin Com Assessment and Plan (1) DORIS (acute kidney injury): Status: Acute (2) COVID: Status: Acute Assessment and Plan: 1. COVID pneumonia: ?had COVID vaccine in ? Continue Decadron ?id eval pending 2. DORIS on ckd stage 3:? probably related to poor appetite, dehydration, ? Also might be covid infection contributing to it. ?patient is receiving fluids iv. ?hold off lisinopril 3.afib:continue metoprolol, apixiban 4. ekg abnormal: trops x1 neg , next draw pendin no chest pain nuclear stress test : was normal will add echo if any chest pain or significant increase in troponin -will add asa and may need cardio eval 5 HLP: continue statin dvt prophylax: with apixiban Quality Stroke Does the patient have a stroke diagnosis?: No VTE Prior VTE?: No VTE Risk Level:: Medical - moderate - high VTE Device Contraindication: N/A - Device Ordered VTE Drug Contraindication: N/A - Med Ordered
--- NOTE | 2021-06-08 11:50 | MHC.CM.PN ---
Per ROUNDS discussion, Patient will be switched from OBSERVATION to INPATIENT.Patient is Covid (+); CM spoke with Significant Other/Bronwyn at [phone] and addressed IMM with her (original will be mailed out certified letter to her and a copy has been placed on the chart).
--- NOTE | 2021-06-08 12:08 | P.CDIC_ITS ---
CDI Concurrent Query Documentation Clarification: PHYSICIAN'S DOCUMENTATION REQUEST Date of Query: 06/08/21 1209 Patient Name: Brijesh Luciano Admit Date: 06/08/21 Dear Doctor, A review of the medical record indicates additional documentation may be needed. Please review below and update the documentation accordingly. Risk Factors/Clinical Indicators/Treatments DORIS on CKD, probably related to dehydration, also might be covid infection. IV fluids. Cr. 2.59/1.87 Bun 36 37 Gfr 24 35 Please clarify which of the following accurately represents the patient's renal status: * Acute renal failure - see criteria * Acute renal failure on Chronic Kidney Disease (CKD) * CKD, please provide stage - see criteria * Other (please specify) * Unable to determine Criteria for DORIS* Stages of Chronic Kidney Disease* 1. Increase in serum creatinine by ? 0.3 mg/dL Level Description GFR (?26.5 micromol/L) within 48 hours, or G1 Normal or High > 90 2. Increase in serum creatinine to ?1.5 times baseline, G2 Mildly decreased 60 ? 89 which is known or presumed to have occurred within 7 days, or G3a Mildly to moderately decreased 45 ? 59 3. Urine volume <0.5 mL/kg/hour for six hours G3b Moderately to severely decreased 30 - 44 G4 Severely decreased 15 ? 29 G5 Kidney failure < 15 *Source: Kidney Disease: Improving Global Outcomes (KDIGO) 2012 Use of terms such as suspected, likely, concern for, or probable (associated with a specific diagnosis that is being evaluated, monitored, or treated as if it exists) are acceptable and can be coded in the inpatient setting, when documented at the time of discharge. Thank you, Jeanie Woody [facility], CDIS Extension: [phone] Please use your independent medical judgment in providing your response. THIS QUERY IS PART OF THE PERMANENT MEDICAL RECORD Provider Response: Other Other Diagnosis: DORIS on ckd stage3
[2021-06-08] MEDS: amLODIPine Besylate 5 MG TABLET PO (13:39)
[2021-06-08] MEDS: cefTRIAXone sodium 1 GM in 0.9 % Sodium Chloride 50 ML IV (16:01)
[2021-06-08] MEDS: Acetaminophen 325 MG TABLET 650 MG PO (16:02)
--- NOTE | 2021-06-08 16:35 | PC.NURSE ---
Patient now presents with elevated temp 102. Dr Ramos notified. BC, ABX, tylenol po ordered. Report given to Rossy Baumann RN at this time.
[2021-06-08 17:05] LABS: Lactic Acid 1.4 mmol/L (0.5-2.0)
[2021-06-08] MEDS: Atorvastatin Calcium 10 MG TABLET PO (19:57)
[2021-06-08] MEDS: Azithromycin 500 MG in 0.9 % Sodium Chloride 250 ML 125 MG IV (19:57)
[2021-06-09] VITALS (10 sets, daily range): BP systolic 95–158; BP diastolic 50–74; PULSE 67–167; RESP 19–24; TEMP 35.9–37.7; O2SAT 87–99
[2021-06-09] MEDS: cefTRIAXone sodium 1 GM in 0.9 % Sodium Chloride 50 ML IV ×2 (04:02→16:20)
[2021-06-09] MEDS: Omeprazole 20 MG CAPSULE.DR PO (05:53)
[2021-06-09 06:52] LABS: Anion Gap 15 (12-20); Blood Urea Nitrogen 42 mg/dL (9-16); Calcium 8.7 mg/dL (8.4-10.2); Carbon Dioxide 21 mmol/L (22-29); Chloride 103 mmol/L (96-108); Estimated Glomerular Filt Rate 36; Glucose Random 105 mg/dL (60-115); Potassium 4.5 mmol/L (3.3-5.1); Sodium 134 mmol/L (135-145)
--- NOTE | 2021-06-09 07:59 | P.PNIM_ITS ---
Subjective Subjective Date of Service: 06/09/21 Interval History: acute hypoxemic respiratory failure secondary tocovid pneumonia Review of Systems sob seems improving denies nay chest pain , no fevers overnight Physical Exam Vital Signs: Vital Signs: Last Vital Signs Temp 98.9 F 06/09/21 04:00 Pulse 89 06/09/21 04:00 Resp 20 06/09/21 04:00 BP 150/71 H 06/09/21 04:00 Pulse Ox 91 L 06/09/21 04:00 BMI result Body Mass Index 29.7 AO X3.? mild sob Eyes: Pupils equal, round and reactive to light.? Sclera nonicteric.? ENT: Pharynx normal.? Moist mucous membranes. cvs: rrr, [id number] , no murmur res: fair air entry ,no rhonchii or wheezing abd: no rebound or guarding ,nt, bs present. ext pulses present , no cyanosis . neuro: axo3 , nonfocal Objective Data Active Medications Acetaminophen (Acetaminophen 325 Mg Tablet) 650 mg PO Q6H PRN PRN Reason: Fever Last Admin: 06/08/21 16:02 Dose: 650 mg Documented by: ROSEMARIE Amlodipine Besylate (Amlodipine Besylate 5 Mg Tablet) 5 mg PO DAILY [facility]; Protocol Last Admin: 06/08/21 13:39 Dose: 5 mg Documented by: MARIELA Apixaban (Apixaban 5 Mg Tablet) 5 mg PO BID [facility] Last Admin: 06/08/21 19:57 Dose: 5 mg Documented by: ASCENCION Atorvastatin Calcium (Atorvastatin Calcium 10 Mg Tablet) 10 mg PO BEDTIME [facility] Last Admin: 06/08/21 19:57 Dose: 10 mg Documented by: ASCENCION Dexamethasone Sodium Phosphate (Dexamethasone Sod Phosphate 4 Mg/Ml Vial) 6 mg IVPUSH DAILY [facility] Last Admin: 06/08/21 09:52 Dose: 6 mg Documented by: MARIELA Ceftriaxone Sodium 1 gm/ (Sodium Chloride) 50 mls @ 100 mls/hr IV Q12H [facility] Last Infusion: 06/09/21 04:56 Dose: 0 mls/hr Documented by: ASCENCION Azithromycin 500 mg/ Sodium (Chloride) 250 mls @ 125 mls/hr IV Q24H [facility] Last Infusion: 06/08/21 22:09 Dose: 0 mls/hr Documented by: ASCENCION Metoprolol Succinate (Metoprolol Succinate Er 50 Mg Tab.Er.24h) 50 mg PO DAILY [facility]; Protocol Last Admin: 06/08/21 09:52 Dose: 50 mg Documented by: MARIELA Omeprazole (Omeprazole 20 Mg Capsule.Dr) 20 mg PO DAILY@0630 [facility] Last Admin: 06/09/21 05:53 Dose: 20 mg Documented by: ASCENCION Pharmacy Consult (Consult Rx Perform Med Rec) 1 each MISCELLANE ONCE PRN PRN Reason: Consult order Sodium Chloride (0.9 % Sodium Chloride Flush 3 Ml Syringe) 3 ml IVFLUSH QSHIFT [facility] Last Admin: 06/08/21 19:57 Dose: 3 ml Documented by: ASCENCION Labs CBC & Chem 7: 06/07/21 12:03 06/09/21 06:22 Labs: Laboratory Results - last 24 hr 06/08/21 06/08/21 06/09/21 09:07 16:49 06:22 Anion Gap 13 15 Estim Creat Clear Calc 31.3 32.0 Estimated GFR 35 36 Random Glucose 162 H D 105 D Lactic Acid 1.4 Calcium 8.8 8.7 Assessment and Plan (1) COVID: Status: Acute (2) DORIS (acute kidney injury): Status: Acute (3) Atrial fibrillation: Status: Acute Assessment and Plan: 1. acute hypoxemic resp failure sec COVID pneumonia: most likely viral sepsis ,but possible superimposed bacterial pneumonia component since has mild elevated procalcitonin levels lactic acid normal, blood cultures pending ?had COVID vaccine in ? Continue Decadron continue iv ceftriaxone and azithromycin ?id eval pending 2. DORIS on ckd stage 3:? probably related to poor appetite, dehydration, ? Also might be covid infection contributing to it. improved with hydration ?hold off lisinopril 3.afib:continue metoprolol, apixiban one episode of elevated ventricular rate-resolved with iv cardizem. 4. ekg abnormal: trops x1 neg , next draw pendin no chest pain nuclear stress test : was normal echo 5 HLP: continue statin dvt prophylax: with apixiban Quality Stroke Does the patient have a stroke diagnosis?: No VTE Prior VTE?: No VTE Risk Level:: Medical - moderate - high VTE Device Contraindication: N/A - Device Ordered VTE Drug Contraindication: N/A - Med Ordered
[2021-06-09] MEDS: Acetaminophen 325 MG TABLET 650 MG PO (08:28)
[2021-06-09] MEDS: 0.9 % Sodium Chloride Flush 3 ML SYRINGE IVFLUSH ×3 (08:29→20:16)
[2021-06-09] MEDS: Apixaban 5 MG TABLET PO ×2 (08:29→20:16)
[2021-06-09] MEDS: dexAMETHasone sod phosphate 4 MG/ML VIAL 6 MG IVPUSH (08:29)
[2021-06-09] MEDS: amLODIPine Besylate 5 MG TABLET PO (08:29)
[2021-06-09] MEDS: Metoprolol Succinate ER 50 MG TAB.ER.24H PO (08:29)
[2021-06-09] MEDS: dilTIAZem HCL 50 MG/10 ML VIAL IVPUSH (09:20)
[2021-06-09 09:32] LABS: Alanine Aminotransferase 24 U/L (0-40); Albumin Level 3.4 g/dL (3.5-5.0); Alkaline Phosphatase 63 U/L (39-117); Aspartate Amino Transferase 32 U/L (5-37); Bilirubin Direct 0.4 mg/dL (0.0-0.5); Bilirubin Total 0.7 mg/dL (0.0-1.0); Total Protein 5.8 g/dL (6.5-8.0)
[2021-06-09] MEDS: Zinc Sulfate 220 MG CAPSULE PO (16:20)
[2021-06-09] MEDS: Azithromycin 500 MG in 0.9 % Sodium Chloride 250 ML 125 MG IV (17:27)
[2021-06-09] MEDS: Famotidine 20 MG TABLET PO (20:16)
[2021-06-09] MEDS: Atorvastatin Calcium 10 MG TABLET PO (20:16)
[2021-06-10] VITALS (7 sets, daily range): BP systolic 119–153; BP diastolic 61–84; PULSE 76–115; RESP 20–22; TEMP 36–38.4; O2SAT 90–99
[2021-06-10] MEDS: cefTRIAXone sodium 1 GM in 0.9 % Sodium Chloride 50 ML IV ×2 (01:44→17:34)
[2021-06-10] MEDS: Metoprolol Tartrate 5 MG/5 ML VIAL IVPUSH (01:44)
[2021-06-10] MEDS: Acetaminophen 325 MG TABLET 650 MG PO ×2 (03:29→12:08)
--- NOTE | 2021-06-10 05:52 | P.EN_ITS ---
Event Note Date of Service: 06/10/21 Event Note: Pt O2 requirements increased. has elevated HR in the 120s. Blood p ressure stable. has a fever - will obtain blood culutures and lactic acid HR most likely driven by fever secondary to COVID19 infection
[2021-06-10 06:38] LABS: Lactic Acid 1.1 mmol/L (0.5-2.0)
[2021-06-10 06:41] LABS: Hematocrit 37.4 % (42.0-52.0); Mean Corpuscular HGB Conc 34.8 g/dl (31.0-36.0); Mean Corpuscular Hemoglobin 31.2 pg (27.0-33.0); Mean Corpuscular Volume 89.7 fL (80.0-98.0); Mean Platelet Volume 13.1 fL (9.4-12.4); Platelet Count 157 X10*3/uL (160-400); Red Blood Count 4.17 X10*6/uL (4.60-5.80); Red Cell Distribution Width 12.7 % (11.0-16.0); White Blood Count 10.6 X10*3/uL (4.8-10.8)
[2021-06-10 07:04] LABS: Anion Gap 13 (12-20); Blood Urea Nitrogen 39 mg/dL (9-16); Calcium 8.3 mg/dL (8.4-10.2); Carbon Dioxide 20 mmol/L (22-29); Chloride 105 mmol/L (96-108); Creatinine Clr Calc Pharmacy 37.8; Estimated Glomerular Filt Rate 43; Glucose Random 94 mg/dL (60-115); Potassium 3.9 mmol/L (3.3-5.1); Sodium 134 mmol/L (135-145)
--- NOTE | 2021-06-10 08:03 | HO.PM.IMPN ---
Subjective Subjective Date of Service: 06/11/21 Interval History: viral sepsis, acute hypoxemic respiratory failure secondary to COVID. Review of Systems Patient is somewhat short of breath last night, currently on 15 L oxygen but feels comfortable sats are in 91 range denies any chest pain or abdominal pain or cough or phlegm or nausea or vomiting or fever. Physical Exam Vital Signs: Vital Signs: Last Vital Signs Temp 96.8 F 06/10/21 07:21 Pulse 82 06/10/21 07:21 Resp 20 06/10/21 07:21 BP 119/61 06/10/21 07:21 Pulse Ox 94 06/10/21 07:21 BMI result Body Mass Index 29.7 AO X3.? mild sob Eyes: Pupils equal, round and reactive to light.? Sclera nonicteric.? ENT: Pharynx normal.? Moist mucous membranes. cvs: rrr, [id number] , no murmur res: fair air entry ,no rhonchii or wheezing abd: no rebound or guarding ,nt, bs present. ext pulses present , no cyanosis . neuro: axo3 , nonfocal Objective Data Active Medications Acetaminophen (Acetaminophen 325 Mg Tablet) 650 mg PO Q6H PRN PRN Reason: Fever Last Admin: 06/10/21 03:29 Dose: 650 mg Documented by: ASCENCION Amlodipine Besylate (Amlodipine Besylate 5 Mg Tablet) 5 mg PO DAILY [facility]; Protocol Last Admin: 06/09/21 08:29 Dose: 5 mg Documented by: JENIFER Apixaban (Apixaban 5 Mg Tablet) 5 mg PO BID [facility] Last Admin: 06/09/21 20:16 Dose: 5 mg Documented by: ASCENCION Atorvastatin Calcium (Atorvastatin Calcium 10 Mg Tablet) 10 mg PO BEDTIME [facility] Last Admin: 06/09/21 20:16 Dose: 10 mg Documented by: ASCENCION Dexamethasone Sodium Phosphate (Dexamethasone Sod Phosphate 4 Mg/Ml Vial) 6 mg IVPUSH DAILY [facility] Last Admin: 06/09/21 08:29 Dose: 6 mg Documented by: JENIFER Famotidine (Famotidine 20 Mg Tablet) 20 mg PO BEDTIME [facility] Last Admin: 06/09/21 20:16 Dose: 20 mg Documented by: ASCENCION Ceftriaxone Sodium 1 gm/ (Sodium Chloride) 50 mls @ 100 mls/hr IV Q12H [facility] Last Infusion: 06/10/21 02:34 Dose: 0 mls/hr Documented by: ASCENCION Azithromycin 500 mg/ Sodium (Chloride) 250 mls @ 125 mls/hr IV Q24H [facility] Last Infusion: 06/09/21 20:18 Dose: 0 mls/hr Documented by: ASCENCION Metoprolol Succinate (Metoprolol Succinate Er 50 Mg Tab.Er.24h) 50 mg PO DAILY [facility]; Protocol Last Admin: 06/09/21 08:29 Dose: 50 mg Documented by: JENIFER Pharmacy Consult (Consult Rx Perform Med Rec) 1 each MISCELLANE ONCE PRN PRN Reason: Consult order Sodium Chloride (0.9 % Sodium Chloride Flush 3 Ml Syringe) 3 ml IVFLUSH QSHIFT [facility] Last Admin: 06/09/21 20:16 Dose: 3 ml Documented by: ASCENCION Zinc Sulfate (Zinc Sulfate 220 Mg Capsule) 220 mg PO DAILY [facility] Last Admin: 06/09/21 16:20 Dose: 220 mg Documented by: JENIFER Labs CBC & Chem 7: 06/10/21 06:15 06/10/21 06:15 Labs: Laboratory Results - last 24 hr 06/09/21 06/10/21 06/10/21 06:22 06:15 06:15 MCV 89.7 MCH 31.2 MCHC 34.8 RDW 12.7 Plt Count 157 L D MPV 13.1 H Absolute Nucleated RBC 0.000 Nucleated RBC % (auto) 0.0 Anion Gap 13 Estim Creat Clear Calc 37.8 Estimated GFR 43 Random Glucose 94 Lactic Acid Calcium 8.3 L Total Bilirubin 0.7 Direct Bilirubin 0.4 AST 32 ALT 24 Alkaline Phosphatase 63 Total Protein 5.8 L Albumin 3.4 L 06/10/21 06:15 MCV MCH MCHC RDW Plt Count MPV Absolute Nucleated RBC Nucleated RBC % (auto) Anion Gap Estim Creat Clear Calc Estimated GFR Random Glucose Lactic Acid 1.1 Calcium Total Bilirubin Direct Bilirubin AST ALT Alkaline Phosphatase Total Protein Albumin Microbiology Microbiology Results: Microbiology 06/08/21 16:37 Blood Culture - Preliminary Blood - Venous No growth after 24 hours. 06/08/21 16:49 Blood Culture - Preliminary Blood - Venous No growth after 24 hours. Assessment and Plan (1) COVID: Status: Acute (2) DORIS (acute kidney injury): Status: Acute (3) Atrial fibrillation: Status: Acute Assessment and Plan: 1. acute hypoxemic resp failure sec COVID pneumonia: most likely viral sepsis ,but possible superimposed bacterial pneumonia component since has mild elevated procalcitonin levels ?lactic acid normal, ?had COVID vaccine in ,blood cultures pending ? Continue Decadron,iv ceftriaxone and azithro day2 abg noted -ph normal , Not retaining CO2 ?id eval pending- no remdesivir since more than 10 days out, MAY need baricinib IF needs high. 2. DORIS on ckd stage 3:? probably related to poor appetite, dehydration, ? Also might be covid infection contributing to it. improved with hydration ?hold off lisinopril 3.afib:continue metoprolol, apixiban one episode of elevated ventricular rate-resolved with iv cardizem. 4. ekg abnormal: trops x1 neg , next draw pendin no chest pain nuclear stress test : was normal echo 5 HLP: continue statin dvt prophylax: with apixiban Quality Stroke Does the patient have a stroke diagnosis?: No VTE Prior VTE?: No VTE Risk Level:: Medical - moderate - high VTE Device Contraindication: N/A - Device Ordered VTE Drug Contraindication: N/A - Med Ordered
[2021-06-10] MEDS: 0.9 % Sodium Chloride Flush 3 ML SYRINGE IVFLUSH ×3 (08:47→19:50)
[2021-06-10] MEDS: dexAMETHasone sod phosphate 4 MG/ML VIAL 6 MG IVPUSH (08:47)
[2021-06-10] MEDS: amLODIPine Besylate 5 MG TABLET PO (08:48)
[2021-06-10] MEDS: Metoprolol Succinate ER 50 MG TAB.ER.24H PO (08:48)
[2021-06-10] MEDS: Apixaban 5 MG TABLET PO ×2 (08:48→19:49)
[2021-06-10] MEDS: Zinc Sulfate 220 MG CAPSULE PO (08:48)
[2021-06-10 13:14] LABS: Venous Blood Gas Refer to POC result
[2021-06-10 13:15] LABS: VBG Base Excess -4.4 mmol/L; VBG HCO3 19 mmol/L (22-26); VBG pCO2 30 mmHg; VBG pO2 51 mmHg
[2021-06-10] MEDS: Azithromycin 500 MG in 0.9 % Sodium Chloride 250 ML 125 MG IV (17:35)
[2021-06-10] MEDS: Atorvastatin Calcium 10 MG TABLET PO (19:49)
[2021-06-10] MEDS: Famotidine 20 MG TABLET PO (19:49)
[2021-06-11] VITALS (9 sets, daily range): BP systolic 120–179; BP diastolic 60–88; PULSE 78–129; RESP 20–22; TEMP 36.1–37.1; O2SAT 82–98
[2021-06-11] MEDS: Acetaminophen 325 MG TABLET 650 MG PO (02:36)
[2021-06-11] MEDS: cefTRIAXone sodium 1 GM in 0.9 % Sodium Chloride 50 ML IV ×2 (02:59→16:35)
[2021-06-11] MEDS: Metoprolol Tartrate 5 MG/5 ML VIAL 2.5 MG IVPUSH (03:50)
--- NOTE | 2021-06-11 04:16 | MHC.PIE ---
p; p 120-140's. b/p 179/88. pt in room shivering c/o cold. oral temp 98. i; warm blankets given. prn ty given. i; dr reynoso notified; new order lopressor iv 2.5 mg now e; p 90-100. pt in bed asleep comforably. will cont to [facility]
--- NOTE | 2021-06-11 08:33 | HO.PM.IMPN ---
Subjective Subjective Date of Service: 06/11/21 Interval History: Acute hypoxemic respiratory failure secondary to COVID. Review of Systems overnight has slight worsening of sob -which seems to be related with cough ( lot of cough), felt anxious also episode of tachycardia -given metoprolol. now says - Shortness of breath is slightly better than yesterday. Physical Exam Vital Signs: Vital Signs: Last Vital Signs Temp 98.1 F 06/11/21 07:58 Pulse 91 06/11/21 07:58 Resp 20 06/11/21 07:58 BP 128/75 06/11/21 07:58 Pulse Ox 98 06/11/21 07:58 BMI result Body Mass Index 29.7 AO X3.? mild sob-seems better than last night , now on high flow ( since overnight-on almonte -11 liter), nbrm Eyes: Pupils equal, round and reactive to light.? Sclera nonicteric.? ENT: Pharynx normal.? Moist mucous membranes. cvs: irregular rythem, [id number] . res: fair air entry ,no rhonchii or wheezing abd: no rebound or guarding ,nt, bs present. ext pulses present , no cyanosis . neuro: axo3 , nonfocal Objective Data Active Medications Acetaminophen (Acetaminophen 325 Mg Tablet) 650 mg PO Q6H PRN PRN Reason: Fever Last Admin: 06/11/21 02:36 Dose: 650 mg Documented by: MORENITA Amlodipine Besylate (Amlodipine Besylate 5 Mg Tablet) 5 mg PO DAILY [facility]; Protocol Last Admin: 06/10/21 08:48 Dose: 5 mg Documented by: PENG Apixaban (Apixaban 5 Mg Tablet) 5 mg PO BID [facility] Last Admin: 06/10/21 19:49 Dose: 5 mg Documented by: MORENITA Atorvastatin Calcium (Atorvastatin Calcium 10 Mg Tablet) 10 mg PO BEDTIME [facility] Last Admin: 06/10/21 19:49 Dose: 10 mg Documented by: MORENITA Dexamethasone Sodium Phosphate (Dexamethasone Sod Phosphate 4 Mg/Ml Vial) 6 mg IVPUSH DAILY [facility] Last Admin: 06/10/21 08:47 Dose: 6 mg Documented by: PENG Famotidine (Famotidine 20 Mg Tablet) 20 mg PO BEDTIME [facility] Last Admin: 06/10/21 19:49 Dose: 20 mg Documented by: MORENITA Ceftriaxone Sodium 1 gm/ (Sodium Chloride) 50 mls @ 100 mls/hr IV Q12H [facility] Last Infusion: 06/11/21 03:51 Dose: 0 mls/hr Documented by: MORENITA Azithromycin 500 mg/ Sodium (Chloride) 250 mls @ 125 mls/hr IV Q24H [facility] Last Infusion: 06/10/21 21:40 Dose: 0 mls/hr Documented by: MORENITA Metoprolol Succinate (Metoprolol Succinate Er 50 Mg Tab.Er.24h) 50 mg PO DAILY [facility]; Protocol Last Admin: 06/10/21 08:48 Dose: 50 mg Documented by: PENG Pharmacy Consult (Consult Rx Perform Med Rec) 1 each MISCELLANE ONCE PRN PRN Reason: Consult order Sodium Chloride (0.9 % Sodium Chloride Flush 3 Ml Syringe) 3 ml IVFLUSH QSHIFT [facility] Last Admin: 06/10/21 19:50 Dose: 3 ml Documented by: MORENITA Zinc Sulfate (Zinc Sulfate 220 Mg Capsule) 220 mg PO DAILY [facility] Last Admin: 06/10/21 08:48 Dose: 220 mg Documented by: PENG Labs CBC & Chem 7: 06/10/21 06:15 06/10/21 06:15 Labs: Laboratory Results - last 24 hr 06/10/21 13:08 VBG pH 7.40 VBG pCO2 30 VBG pO2 51 VBG HCO3 19 L VBG O2 Saturation 78.0 VBG Base Excess -4.4 Microbiology Microbiology Results: Microbiology 06/10/21 06:15 Blood Culture - Preliminary Blood - Venous No growth after 24 hours. 06/10/21 06:15 Blood Culture - Preliminary Blood - Venous No growth after 24 hours. 06/08/21 16:37 Blood Culture - Preliminary Blood - Venous No growth after 48 hours. 06/08/21 16:49 Blood Culture - Preliminary Blood - Venous No growth after 48 hours. Assessment and Plan (1) Acute respiratory failure due to COVID-19: Status: Acute (2) DORIS (acute kidney injury): Status: Acute (3) COVID: Status: Acute (4) Atrial fibrillation: Status: Acute Assessment and Plan: 1. acute hypoxemic resp failure sec COVID pneumonia: most likely viral sepsis ,but possible superimposed bacterial component since has mild elevated procalcitonin levels ?lactic acid normal,blood cultures neg@24hrs ?had COVID vaccine in , ?id eval pending- no? remdesivir since more than 10 days out, Continue Decadron,iv ceftriaxone and azithro day3, baricitinib day1 also added pulm eval-may need pulse dose of steriods if further worsen. added sars igg , inflamtory markers-crp/ldh for morning 2. DORIS on ckd stage 3:? probably related to poor appetite, dehydration, ? Also might be covid infection contributing to it. improved with hydration ?blood pressure acceptable -hold off lisinopril 3.afib:continue metoprolol, apixiban one episode of elevated ventricular rate-resolved( probably related to cough) with iv metoprolol overnight. 4. ekg abnormal: trops flat no chest pain nuclear stress test : was normal echo:?1.? Low normal LV systolic function with LVEF of 50-55% ? ? ? 2. Left atrium appears to be enlarged? 3.? Limited cardiac valvular Doppler ? 4.? Normal RV systolic pressure? 5.? No gross pericardial effusion? further workup outpatiently. 5 HLP: continue statin dvt prophylax: with apixiban Quality Stroke Does the patient have a stroke diagnosis?: No VTE Prior VTE?: No VTE Risk Level:: Medical - moderate - high VTE Device Contraindication: N/A - Device Ordered VTE Drug Contraindication: N/A - Med Ordered
[2021-06-11] MEDS: 0.9 % Sodium Chloride Flush 3 ML SYRINGE IVFLUSH ×3 (08:35→20:05)
[2021-06-11] MEDS: dexAMETHasone sod phosphate 4 MG/ML VIAL 6 MG IVPUSH (08:35)
[2021-06-11] MEDS: Zinc Sulfate 220 MG CAPSULE PO (08:36)
[2021-06-11] MEDS: Apixaban 5 MG TABLET PO ×2 (08:36→20:05)
[2021-06-11] MEDS: Metoprolol Succinate ER 50 MG TAB.ER.24H PO (08:36)
[2021-06-11] MEDS: amLODIPine Besylate 5 MG TABLET PO (08:38)
--- NOTE | 2021-06-11 12:57 | P.CONPL_ITS ---
History of Present Illness History of Present Illness Consult date: 06/11/21 Chief complaint: covid pneumonia doris on ckd Narrative: ?This is an in patient pulmonary consultation. The patient is an 85-year-old male with past medical history of? chronic AFib, hypertension, hypercholesteremia,? patient said that he had COVID vaccines back in ,? did not received booster yet. Patient is having? generally weak and decreased p.o. intake as well as more sleepiness from last week or so.? he also has somewhat shortness of breath with walking from 5-6 days as per the patient. ?patient says that he has cough with clear sputum but otherwise denies any fever? or any sick contacts or recent travel or going to and libertarian. Now he is on HF getting worse. On broad spectrum abx, Decadron. The patient was started on Baricitinib. Renal fuction is getting better. Review of Systems Constitutional: Constitutional: Denies night sweats ENT: Denies change in voice, Denies lip swelling, Denies mouth pain, Reports nasal congestion, Reports nasal discharge and Denies tongue swelling Cardiovascular: Cardiovascular: Denies chest pain and Reports dyspnea Respiratory: Respiratory: Reports cough, Denies pain on inspiration, Denies pain with cough and Reports dyspnea Gastrointestinal: Gastrointestinal: Denies abdominal pain Musculoskeletal: Musculoskeletal: Denies no additional musculoskeletal complaints Neurologic: Denies Neuro-related abnormal movements Psychiatric: Psychiatric: Denies no additional psychiatric complaints Hematologic/Lymphatic: Hematologic/Lymphatic: Denies easy bleeding and Denies lymphadenopathy Allergic/Immunologic: Allergic/Immunologic: Denies lip swelling and Denies tongue swelling [facility] Past Medical History Medical History (Updated 06/11/21 @ 13:05 by Greg Berrios MD) Acute respiratory failure due to COVID-19 Afib Hiatal hernia Surgical History Surgical History History of total left knee replacement (TKR) Hx of cholecystectomy Social History Social History Patient Tobacco Use Status: Former Tobacco user Use of substances other than those prescribed or required for medical reasons: No Advance Directives: No Advance Directives Information Provided: No Advance Directives on File: No service: No Current occupational status: retired Meds Allergies Allergy/AdvReac Type Severity Reaction Status Date / Time No Known Allergies Allergy Unverified 03/09/20 19:34 [No Known Allergies*] Active Medications: Current Medications Acetaminophen (Acetaminophen 325 Mg Tablet) 650 mg PO Q6H PRN PRN Reason: Fever Last Admin: 06/11/21 02:36 Dose: 650 mg Documented by: Amlodipine Besylate (Amlodipine Besylate 5 Mg Tablet) 5 mg PO DAILY [facility]; Protocol Last Admin: 06/11/21 08:38 Dose: 5 mg Documented by: Apixaban (Apixaban 5 Mg Tablet) 5 mg PO BID [facility] Last Admin: 06/11/21 08:36 Dose: 5 mg Documented by: Atorvastatin Calcium (Atorvastatin Calcium 10 Mg Tablet) 10 mg PO BEDTIME VERO Last Admin: 06/10/21 19:49 Dose: 10 mg Documented by: Baricitinib (Baricitinib 2 Mg Tablet) 2 mg PO DAILY [facility] Stop: 06/24/21 09:01 Dexamethasone Sodium Phosphate (Dexamethasone Sod Phosphate 4 Mg/Ml Vial) 6 mg IVPUSH DAILY [facility] Last Admin: 06/11/21 08:35 Dose: 6 mg Documented by: Famotidine (Famotidine 20 Mg Tablet) 20 mg PO BEDTIME [facility] Last Admin: 06/10/21 19:49 Dose: 20 mg Documented by: Guaifenesin/Codeine Phosphate (Guaifen/Codeine Sf 200/20/10ml 10 Ml Liquid) 5 ml PO Q6H PRN PRN Reason: Cough Ceftriaxone Sodium 1 gm/ (Sodium Chloride) 50 mls @ 100 mls/hr IV Q12H [facility] Last Infusion: 06/11/21 03:51 Dose: Infused Documented by: Azithromycin 500 mg/ Sodium (Chloride) 250 mls @ 125 mls/hr IV Q24H [facility] Last Infusion: 06/10/21 21:40 Dose: Infused Documented by: Metoprolol Succinate (Metoprolol Succinate Er 50 Mg Tab.Er.24h) 50 mg PO DAILY [facility]; Protocol Last Admin: 06/11/21 08:36 Dose: 50 mg Documented by: Pharmacy Consult (Consult Rx Perform Med Rec) 1 each MISCELLANE ONCE PRN PRN Reason: Consult order Sodium Chloride (0.9 % Sodium Chloride Flush 3 Ml Syringe) 3 ml IVFLUSH QSHIFT [facility] Last Admin: 06/11/21 08:35 Dose: 3 ml Documented by: Zinc Sulfate (Zinc Sulfate 220 Mg Capsule) 220 mg PO DAILY [facility] Last Admin: 06/11/21 08:36 Dose: 220 mg Documented by: Home Medications Medication Instructions Recorded Confirmed Last Taken Type apixaban 5 mg tablet 5 mg PO BID 06/12/20 06/07/21 Unknown History metoprolol succinate 50 mg 50 mg PO DAILY 06/12/20 06/07/21 Unknown History tablet,extended release 24 hr omeprazole 20 mg capsule,delayed 20 mg PO DAILY 06/12/20 06/07/21 Unknown History release simvastatin 20 mg tablet 20 mg PO BEDTIME 06/12/20 06/07/21 Unknown History lisinopril 10 mg tablet 1 tab PO DAILY 06/07/21 06/07/21 Unknown History Physical Exam Vital Signs: Vital Signs: Last Vital Signs Temp 98.6 F 06/11/21 11:12 Pulse 94 06/11/21 11:12 Resp 20 06/11/21 11:12 BP 129/60 06/11/21 11:12 Pulse Ox 82 L 06/11/21 11:12 BMI result Body Mass Index 29.7 Const: General: alert Neck: Neck: Yes normal visual inspection, Yes full ROM and Yes no lymphadenopathy Chest: Chest palpation & inspection: normal inspection of the chest Resp: Auscultation: diminished lung sounds Cardio: Rate: regular rate Rhythm: regular rhythm Heart sounds: S1 normal heart sound present and S2 normal heart sound present GI: Palpation (GI): Soft to palpation and nontender Auscultation: normal bowel sounds Skin: General skin exam: rashes and/or lesions noted Results Laboratory Findings CBC and BMP: 06/10/21 06:15 06/10/21 06:15 ABG, PT/INR, D-dimer: PT/INR, D-dimer PT 24.9 SEC (9.9-13.0) H 06/07/21 12:03 INR 2.2 (0.9-1.1) H 06/07/21 12:03 Abnormal lab findings: Abnormal Labs 06/07/21 06/07/21 06/07/21 12:03 12:03 12:03 RBC Hgb Hct Plt Count 124 L MPV 12.5 H Neut % (Auto) 87.4 H Lymph % (Auto) 6.2 L Lymph # (Auto) 0.5 L PT 24.9 H INR 2.2 H APTT 40.8 H VBG HCO3 Sodium Carbon Dioxide BUN Creatinine Random Glucose Calcium Ferritin Lactate Dehydrogenase C-Reactive Protein Total Protein Albumin COVID-19 (DIONNE) Positive A 06/07/21 06/08/21 06/09/21 12:38 09:07 06:22 RBC Hgb Hct Plt Count MPV Neut % (Auto) Lymph % (Auto) Lymph # (Auto) PT INR APTT VBG HCO3 Sodium 133 L 133 L 134 L Carbon Dioxide 21 L 21 L BUN 36 H 37 H 42 H Creatinine 2.59 H 1.87 H 1.83 H Random Glucose 117 H 162 H D Calcium Ferritin 359 H Lactate Dehydrogenase 290 H C-Reactive Protein 10.45 H Total Protein 6.4 L 5.8 L Albumin 3.4 L COVID-19 (DIONNE) 06/10/21 06/10/21 06/10/21 06:15 06:15 13:08 RBC 4.17 L Hgb 13.0 L Hct 37.4 L Plt Count 157 L D MPV 13.1 H Neut % (Auto) Lymph % (Auto) Lymph # (Auto) PT INR APTT VBG HCO3 19 L Sodium 134 L Carbon Dioxide 20 L BUN 39 H Creatinine 1.55 H Random Glucose Calcium 8.3 L Ferritin Lactate Dehydrogenase C-Reactive Protein Total Protein Albumin COVID-19 (DIONNE) Microbiology: Microbiology 06/10/21 06:15 Blood - Venous Blood Culture - Preliminary No growth after 24 hours. 06/10/21 06:15 Blood - Venous Blood Culture - Preliminary No growth after 24 hours. 06/08/21 16:37 Blood - Venous Blood Culture - Preliminary No growth after 48 hours. 06/08/21 16:49 Blood - Venous Blood Culture - Preliminary No growth after 48 hours. Assessment and Plan (1) COVID: Status: Acute (2) Acute respiratory failure due to COVID-19: Status: Acute (3) DORIS (acute kidney injury): Status: Acute Continue antibiotic coverage x 8 days Continue IV decadron, consider pulse dose steroids if worsens Add Baricitinib (renal dose) Consider diuresis if worsens Awake proning Procedures Date of Service Date of Service: 06/11/21
--- NOTE | 2021-06-11 13:16 | MHC.CM.PN ---
Per ROUNDS discussion, Patient is not yet medically cleared for dc (IV Azithromycin, IV Ceftriaxone, IV Decadron, 11L O2). Home is the goal for dc and CM will follow for possible need to adjust the dc plan.
--- NOTE | 2021-06-11 15:59 | P.CNID_ITS ---
History of Present Illness Data of Consult Service Date: 06/11/21 Requesting physician: Maureen Ramos Primary Care Provider: MD KELSIE Pedroza Reason for consult: COVID He presents with shortness of breath and cough for 10 days. He has had fever and chills He has positive COVID and now more shortness of breath and oxygen requirements Review of Systems Review of Systems: Yes all other systems are reviewed and are negative PMFSH Past Medical History Medical History Acute respiratory failure due to COVID-19 Afib Hiatal hernia Family History Family history: reviewed and not pertinent Surgical History Surgical History History of total left knee replacement (TKR) Hx of cholecystectomy Social History Social History Patient Tobacco Use Status: Former Tobacco user Use of substances other than those prescribed or required for medical reasons: No Advance Directives: No Advance Directives Information Provided: No Advance Directives on File: No service: No Current occupational status: retired [employer] [place] Allergies Allergy/AdvReac Type Severity Reaction Status Date / Time No Known Allergies Allergy Unverified 03/09/20 19:34 [No Known Allergies*] Active Medications: Current Medications Acetaminophen (Acetaminophen 325 Mg Tablet) 650 mg PO Q6H PRN PRN Reason: Fever Last Admin: 06/11/21 02:36 Dose: 650 mg Documented by: Amlodipine Besylate (Amlodipine Besylate 5 Mg Tablet) 5 mg PO DAILY [facility]PL[facility] BY [facility]; Protocol Last Admin: 06/11/21 08:38 Dose: 5 mg Documented by: Apixaban (Apixaban 5 Mg Tablet) 5 mg PO BID [facility]PLACED BY [facility] Last Admin: 06/11/21 08:36 Dose: 5 mg Documented by: Atorvastatin Calcium (Atorvastatin Calcium 10 Mg Tablet) 10 mg PO BEDTIME [facility]ERO Last Admin: 06/10/21 19:49 Dose: 10 mg Documented by: Baricitinib (Baricitinib 2 Mg Tablet) 2 mg PO DAILY [facility] Stop: 06/24/21 09:01 Last Admin: 06/11/21 13:54 Dose: 2 mg Documented by: Dexamethasone Sodium Phosphate (Dexamethasone Sod Phosphate 4 Mg/Ml Vial) 6 mg IVPUSH DAILY [facility] Last Admin: 06/11/21 08:35 Dose: 6 mg Documented by: Famotidine (Famotidine 20 Mg Tablet) 20 mg PO BEDTIME REPLACED BY [facility] Last Admin: 06/10/21 19:49 Dose: 20 mg Documented by: Guaifenesin/Codeine Phosphate (Guaifen/Codeine Sf 200/20/10ml 10 Ml Liquid) 5 ml PO Q6H PRN PRN Reason: Cough Ceftriaxone Sodium 1 gm/ (Sodium Chloride) 50 mls @ 100 mls/hr IV Q12H [facility]PL[facility] Last Infusion: 06/11/21 03:51 Dose: Infused Documented by: Azithromycin 500 mg/ Sodium (Chloride) 250 mls @ 125 mls/hr IV Q24H [facility]PL[facility] Last Infusion: 06/10/21 21:40 Dose: Infused Documented by: Metoprolol Succinate (Metoprolol Succinate Er 50 Mg Tab.Er.24h) 50 mg PO DAILY [facility]; Protocol Last Admin: 06/11/21 08:36 Dose: 50 mg Documented by: Pharmacy Consult (Consult Rx Perform Med Rec) 1 each MISCELLANE ONCE PRN PRN Reason: Consult order Sodium Chloride (0.9 % Sodium Chloride Flush 3 Ml Syringe) 3 ml IVFLUSH QSHIFT REPLACED BY [facility] Last Admin: 06/11/21 08:35 Dose: 3 ml Documented by: Zinc Sulfate (Zinc Sulfate 220 Mg Capsule) 220 mg PO DAILY [facility] Last Admin: 06/11/21 08:36 Dose: 220 mg Documented by: Home Medications Medication Instructions Recorded Confirmed Last Taken Type apixaban 5 mg tablet 5 mg PO BID 06/12/20 06/07/21 Unknown History metoprolol succinate 50 mg 50 mg PO DAILY 06/12/20 06/07/21 Unknown History tablet,extended release 24 hr omeprazole 20 mg capsule,delayed 20 mg PO DAILY 06/12/20 06/07/21 Unknown History release simvastatin 20 mg tablet 20 mg PO BEDTIME 06/12/20 06/07/21 Unknown History lisinopril 10 mg tablet 1 tab PO DAILY 06/07/21 06/07/21 Unknown History Physical Exam Vital Signs: Vital Signs: Last Vital Signs Temp 96.9 F 06/11/21 15:25 Pulse 78 06/11/21 15:25 Resp 20 06/11/21 15:25 BP 130/63 06/11/21 15:25 Pulse Ox 92 06/11/21 15:25 BMI result Body Mass Index 29.7 Const: General: cooperative Eyes: General: appearance normal, both eyes and all related structures Resp: Effort & Inspection: normal respiratory effort Cardio: Rate: regular rate Rhythm: regular rhythm GI: Palpation (GI): Soft to palpation and nontender Skin: General skin exam: no rashes or lesions noted Results Labs CBC & Chem 7: 06/10/21 06:15 06/10/21 06:15 Microbiology Microbiology Results: Microbiology 06/10/21 06:15 Blood - Venous Blood Culture - Preliminary No growth after 24 hours. 06/10/21 06:15 Blood - Venous Blood Culture - Preliminary No growth after 24 hours. 06/08/21 16:37 Blood - Venous Blood Culture - Preliminary No growth after 48 hours. 06/08/21 16:49 Blood - Venous Blood Culture - Preliminary No growth after 48 hours. Assessment and Plan (1) Acute respiratory failure due to COVID-19: Status: Acute He has worsening respiratory dysfunction He has symptoms about 10 days (2) COVID: Status: Acute Dexamethasone Baricitinib Oxygen as needed
[2021-06-11] MEDS: guaiFEN/Codeine SF 200/20/10ML 10 ML LIQUID 5 ML PO (16:34)
[2021-06-11] MEDS: Azithromycin 500 MG in 0.9 % Sodium Chloride 250 ML 125 MG IV (16:35)
[2021-06-11] MEDS: Famotidine 20 MG TABLET PO (20:05)
[2021-06-11] MEDS: Atorvastatin Calcium 10 MG TABLET PO (20:05)
[2021-06-12] MEDS: cefTRIAXone sodium 1 GM in 0.9 % Sodium Chloride 50 ML IV ×2 (03:24→16:15)
[2021-06-12 03:25] VITALS: BP 121/74; PULSE 87; RESP 20; TEMP 36.4
[2021-06-12 04:06] LABS: SARS COV2 IgG Negative (Negative)
[2021-06-12 06:40] LABS: Hematocrit 37.6 % (42.0-52.0); Hemoglobin 12.8 g/dl (14.0-18.0); Mean Corpuscular Hemoglobin 30.7 pg (27.0-33.0); Mean Corpuscular Volume 90.2 fL (80.0-98.0); Mean Platelet Volume 12.8 fL (9.4-12.4); Platelet Count 176 X10*3/uL (160-400); Red Blood Count 4.17 X10*6/uL (4.60-5.80); Red Cell Distribution Width 12.9 % (11.0-16.0); White Blood Count 13.7 X10*3/uL (4.8-10.8)
[2021-06-12 06:46] LABS: Anion Gap 14 (12-20); Blood Urea Nitrogen 35 mg/dL (9-16); C Reactive Protein 16.95 mg/dL (< or = 0.50); Calcium 8.3 mg/dL (8.4-10.2); Carbon Dioxide 21 mmol/L (22-29); Chloride 107 mmol/L (96-108); Creatinine Clr Calc Pharmacy 48.1; Estimated Glomerular Filt Rate 57; Glucose Random 107 mg/dL (60-115); Lactate Dehydrogenase 749 U/L (118-273); Potassium 4.5 mmol/L (3.3-5.1); Sodium 137 mmol/L (135-145)
[2021-06-12 07:51] VITALS: BP 143/80; PULSE 86; RESP 28; TEMP 36.5; O2SAT 87
--- NOTE | 2021-06-12 09:26 | P.PNPL_ITS ---
Subjective Subjective Date of Service: 06/12/21 Interval history: The patient was seen and examined. He was started on Baricitinib and also continues on the Decadron. He still requiring the the non- rebreather in addition to the nasal cannula. Overall he is feeling better. He get expand his lungs better without any significant coughing. He is also having less phlegm. The patient continues to be hypoxic however. Objective Data Labs CBC & Chem 7: 06/12/21 06:18 06/12/21 06:18 Labs: Laboratory Results - last 24 hr 06/11/21 06/12/21 06/12/21 16:24 06:18 06:18 WBC 13.7 H RBC 4.17 L Hgb 12.8 L Hct 37.6 L MCV 90.2 MCH 30.7 MCHC 34.0 RDW 12.9 Plt Count 176 MPV 12.8 H Absolute Nucleated RBC 0.000 Nucleated RBC % (auto) 0.0 Sodium 137 Potassium 4.5 Chloride 107 Carbon Dioxide 21 L Anion Gap 14 BUN 35 H Creatinine 1.22 Estim Creat Clear Calc 48.1 Estimated GFR 57 Random Glucose 107 Calcium 8.3 L Lactate Dehydrogenase 749 H C-Reactive Protein 16.95 H SARS-CoV-2 IgG Ab Negative Microbiology Microbiology Results: Microbiology 06/10/21 06:15 Blood - Venous Blood Culture - Preliminary No growth after 48 hours. 06/10/21 06:15 Blood - Venous Blood Culture - Preliminary No growth after 48 hours. 06/08/21 16:37 Blood - Venous Blood Culture - Preliminary No growth after 48 hours. 06/08/21 16:49 Blood - Venous Blood Culture - Preliminary No growth after 48 hours. Review of Systems Constitutional: Denies night sweats Denies change in voice, Denies lip swelling, Denies mouth pain, Reports nasal congestion, Reports nasal discharge and Denies tongue swelling Cardiovascular: Denies chest pain and Reports dyspnea Respiratory: Reports cough, Denies pain on inspiration, Denies pain with cough and Reports dyspnea Gastrointestinal: Denies abdominal pain Musculoskeletal: Denies no additional musculoskeletal complaints Denies Neuro-related abnormal movements Psychiatric: Denies no additional psychiatric complaints Hematologic/Lymphatic: Denies easy bleeding and Denies lymphadenopathy Allergic/Immunologic: Denies lip swelling and Denies tongue swelling Physical Exam Vital Signs: Vital Signs: Last Vital Signs Temp 97.7 F 06/12/21 07:51 Pulse 86 06/12/21 07:51 Resp 28 H 06/12/21 07:51 BP 143/80 H 06/12/21 07:51 Pulse Ox 87 L 06/12/21 07:51 BMI result Body Mass Index 29.7 Const: General: alert Neck: Neck: Yes normal visual inspection, Yes full ROM and Yes no lymphadenopathy Chest: Chest palpation & inspection: normal inspection of the chest Resp: Auscultation: diminished lung sounds Cardio: Rate: regular rate Rhythm: regular rhythm Heart sounds: S1 normal heart sound present and S2 normal heart sound present Skin: General skin exam: rashes and/or lesions noted Procedures Date of Service Date of Service: 06/12/21 Assessment and Plan Assessment and plan (1) Acute respiratory failure due to COVID-19: Status: Acute (2) COVID: Status: Acute Assessment and Plan: continue Baricitinib, renal fuction is normal should increase to 4mg Continue Decadron Descalate antibiotics to Doxycycline ISS/awake proning Time Spent With Patient Time: Total time spent is greater than 50% in coordination of care (as documented) at patient's floor/unit and/or counseling patient: Time with patient: 15 - 24 minutes Progress Note: Quality Stroke Does the patient have a stroke diagnosis?: No
[2021-06-12] MEDS: 0.9 % Sodium Chloride Flush 3 ML SYRINGE IVFLUSH ×3 (10:07→20:15)
[2021-06-12] MEDS: Apixaban 5 MG TABLET PO ×2 (10:07→20:15)
[2021-06-12] MEDS: Metoprolol Succinate ER 50 MG TAB.ER.24H PO (10:07)
[2021-06-12] MEDS: dexAMETHasone sod phosphate 4 MG/ML VIAL 6 MG IVPUSH (10:07)
[2021-06-12] MEDS: amLODIPine Besylate 5 MG TABLET PO (10:07)
[2021-06-12] MEDS: Zinc Sulfate 220 MG CAPSULE PO (10:07)
--- NOTE | 2021-06-12 10:15 | P.PNIM_ITS ---
Subjective Subjective Date of Service: 06/12/21 Interval History: f/u on acute hypoxic resp failure due to covid, remains very hypoxic presently 87% on 15 liters and better with NRB +NC, clinically otherwise looks non-toxic Review of Systems no fever sob Physical Exam Vital Signs: Vital Signs: Last Vital Signs Temp 97.7 F 06/12/21 07:51 Pulse 86 06/12/21 07:51 Resp 28 H 06/12/21 07:51 BP 143/80 H 06/12/21 07:51 Pulse Ox 87 L 06/12/21 07:51 BMI result Body Mass Index 29.7 General: AO X 3, no acute distress Resp: CVS: S1,S2,RRR GI: +BS, NT, no distention Skin: No rash Neuro: motor grossly intact Psych: appropriate affect Objective Data Active Medications Acetaminophen (Acetaminophen 325 Mg Tablet) 650 mg PO Q6H PRN PRN Reason: Fever Last Admin: 06/11/21 02:36 Dose: 650 mg Documented by: MORENITA Amlodipine Besylate (Amlodipine Besylate 5 Mg Tablet) 5 mg PO DAILY [facility]; Protocol Last Admin: 06/12/21 10:07 Dose: 5 mg Documented by: ROSEMARIE Apixaban (Apixaban 5 Mg Tablet) 5 mg PO BID [facility] Last Admin: 06/12/21 10:07 Dose: 5 mg Documented by: ROSEMARIE Atorvastatin Calcium (Atorvastatin Calcium 10 Mg Tablet) 10 mg PO BEDTIME [facility] Last Admin: 06/11/21 20:05 Dose: 10 mg Documented by: ASCENCION Baricitinib (Baricitinib 2 Mg Tablet) 2 mg PO DAILY [facility] Stop: 06/24/21 09:01 Last Admin: 06/12/21 10:08 Dose: 2 mg Documented by: ROSEMARIE Dexamethasone Sodium Phosphate (Dexamethasone Sod Phosphate 4 Mg/Ml Vial) 6 mg IVPUSH DAILY [facility] Last Admin: 06/12/21 10:07 Dose: 6 mg Documented by: ROSEMARIE Famotidine (Famotidine 20 Mg Tablet) 20 mg PO BEDTIME [facility] Last Admin: 06/11/21 20:05 Dose: 20 mg Documented by: ASCENCION Guaifenesin/Codeine Phosphate (Guaifen/Codeine Sf 200/20/10ml 10 Ml Liquid) 5 ml PO Q6H PRN PRN Reason: Cough Last Admin: 06/11/21 16:34 Dose: 5 ml Documented by: ROSEMARIE Ceftriaxone Sodium 1 gm/ (Sodium Chloride) 50 mls @ 100 mls/hr IV Q12H [facility] Last Infusion: 06/12/21 04:00 Dose: 0 mls/hr Documented by: ANTOIC Azithromycin 500 mg/ Sodium (Chloride) 250 mls @ 125 mls/hr IV Q24H [facility] Last Infusion: 06/11/21 18:40 Dose: 125 mls/hr Documented by: ROSEMARIE Metoprolol Succinate (Metoprolol Succinate Er 50 Mg Tab.Er.24h) 50 mg PO DAILY [facility]; Protocol Last Admin: 06/12/21 10:07 Dose: 50 mg Documented by: ROSEMARIE Pharmacy Consult (Consult Rx Perform Med Rec) 1 each MISCELLANE ONCE PRN PRN Reason: Consult order Sodium Chloride (0.9 % Sodium Chloride Flush 3 Ml Syringe) 3 ml IVFLUSH QSHIFT COUNT [facility]CLUD[facility] Last Admin: 06/12/21 10:07 Dose: 3 ml Documented by: ROSEMARIE Zinc Sulfate (Zinc Sulfate 220 Mg Capsule) 220 mg PO DAILY [facility] Last Admin: 06/12/21 10:07 Dose: 220 mg Documented by: ROSEMARIE Labs CBC & Chem 7: 06/12/21 06:18 06/12/21 06:18 Labs: Laboratory Results - last 24 hr 06/11/21 06/12/21 06/12/21 16:24 06:18 06:18 MCV 90.2 MCH 30.7 MCHC 34.0 RDW 12.9 Plt Count 176 MPV 12.8 H Absolute Nucleated RBC 0.000 Nucleated RBC % (auto) 0.0 Anion Gap 14 Estim Creat Clear Calc 48.1 Estimated GFR 57 Random Glucose 107 Calcium 8.3 L Lactate Dehydrogenase 749 H C-Reactive Protein 16.95 H SARS-CoV-2 IgG Ab Negative Microbiology Microbiology Results: Microbiology 06/10/21 06:15 Blood Culture - Preliminary Blood - Venous No growth after 48 hours. 06/10/21 06:15 Blood Culture - Preliminary Blood - Venous No growth after 48 hours. Assessment and Plan (1) Acute respiratory failure due to COVID-19: Status: Acute (2) DORIS (acute kidney injury): Status: Acute (3) COVID: Status: Acute (4) Atrial fibrillation: Status: Acute Assessment and Plan: 1. acute hypoxemic resp failure d/t covid pneumonia--there is persitent hypoxia that is rather severe -not candidate remdesevir d/t duration of symptoms -continue IV decadron -continue Baricitinib for 14 days. -Tittrate O2, prononing, incentive spirometry 2. 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 Doris resolved. 3.AFfib:continue metoprolol, apixiban 4. ekg abnormal: trops flat no chest pain nuclear stress test : was normal echo:?1.? Low normal LV systolic function with LVEF of 50-55% ? ? ? 2. Left atrium appears to be enlarged? 3.? Limited cardiac valvular Doppler ? 4.? Normal RV systolic pressure? 5.? No gross pericardial effusion? further workup outpatiently. 5 HLP: continue statin dvt prophylax: with apixiban Quality Stroke Does the patient have a stroke diagnosis?: No VTE Prior VTE?: No VTE Risk Level:: Medical - moderate - high VTE Device Contraindication: N/A - Device Ordered VTE Drug Contraindication: N/A - Med Ordered
[2021-06-12 11:01] VITALS: BP 149/67; PULSE 89; RESP 32; TEMP 36.3; O2SAT 92
[2021-06-12 15:43] VITALS: BP 122/75; PULSE 81; RESP 20; TEMP 36.2; O2SAT 96
[2021-06-12] MEDS: Azithromycin 500 MG in 0.9 % Sodium Chloride 250 ML 125 MG IV (17:06)
[2021-06-12 19:13] VITALS: BP 140/73; PULSE 100; RESP 20; TEMP 36.2; O2SAT 94
[2021-06-12] MEDS: Famotidine 20 MG TABLET PO (20:15)
[2021-06-12] MEDS: Atorvastatin Calcium 10 MG TABLET PO (20:15)
[2021-06-13] VITALS (13 sets, daily range): BP systolic 131–161; BP diastolic 69–95; PULSE 83–124; RESP 18–24; TEMP 36.3–37.1; O2SAT 82–95
[2021-06-13] MEDS: cefTRIAXone sodium 1 GM in 0.9 % Sodium Chloride 50 ML IV ×2 (02:10→17:10)
[2021-06-13] MEDS: Zinc Sulfate 220 MG CAPSULE PO (08:21)
[2021-06-13] MEDS: Apixaban 5 MG TABLET PO (08:21)
[2021-06-13] MEDS: 0.9 % Sodium Chloride Flush 3 ML SYRINGE IVFLUSH ×3 (08:21→20:37)
[2021-06-13] MEDS: amLODIPine Besylate 5 MG TABLET PO (08:21)
[2021-06-13] MEDS: Metoprolol Succinate ER 50 MG TAB.ER.24H PO (08:22)
[2021-06-13] MEDS: dexAMETHasone sod phosphate 4 MG/ML VIAL 6 MG IVPUSH (08:22)
--- NOTE | 2021-06-13 11:00 | P.PNIM_ITS ---
Subjective Subjective Date of Service: 06/13/21 Interval History: f/u on acute hypoxic resp failure due to covid, remains very hypoxic presently, O2 requiremtn has gone and now is on high flow Review of Systems no fever sob Physical Exam Vital Signs: Vital Signs: Last Vital Signs Temp 97.4 F 06/13/21 07:53 Pulse 99 06/13/21 08:22 Resp 20 06/13/21 10:57 BP 135/94 H 06/13/21 08:22 Pulse Ox 95 06/13/21 07:53 BMI result Body Mass Index 29.7 Const: Other: General: AO X 3, no acute distress Resp: normal respiratory effort CVS: S1,S2,RRR GI: +BS, NT, no distention Skin: No rash Neuro: motor grossly intact Psych: appropriate affect Objective Data Active Medications Acetaminophen (Acetaminophen 325 Mg Tablet) 650 mg PO Q6H PRN PRN Reason: Fever Last Admin: 06/11/21 02:36 Dose: 650 mg Documented by: MORENITA Amlodipine Besylate (Amlodipine Besylate 5 Mg Tablet) 5 mg PO DAILY [facility]; Protocol Last Admin: 06/13/21 08:21 Dose: 5 mg Documented by: ANUSHA Apixaban (Apixaban 5 Mg Tablet) 5 mg PO BID [facility] Last Admin: 06/13/21 08:21 Dose: 5 mg Documented by: ANUSHA Atorvastatin Calcium (Atorvastatin Calcium 10 Mg Tablet) 10 mg PO BEDTIME [facility] Last Admin: 06/12/21 20:15 Dose: 10 mg Documented by: ASCENCION Baricitinib (Baricitinib 2 Mg Tablet) 2 mg PO DAILY [facility] Stop: 06/24/21 09:01 Last Admin: 06/13/21 08:21 Dose: 2 mg Documented by: ANUSHA Dexamethasone Sodium Phosphate (Dexamethasone Sod Phosphate 4 Mg/Ml Vial) 6 mg IVPUSH DAILY [facility] Last Admin: 06/13/21 08:22 Dose: 6 mg Documented by: ANUSHA Famotidine (Famotidine 20 Mg Tablet) 20 mg PO BEDTIME [facility] Last Admin: 06/12/21 20:15 Dose: 20 mg Documented by: ASCENCION Guaifenesin/Codeine Phosphate (Guaifen/Codeine Sf 200/20/10ml 10 Ml Liquid) 5 ml PO Q6H PRN PRN Reason: Cough Last Admin: 06/11/21 16:34 Dose: 5 ml Documented by: ROSEMARIE Ceftriaxone Sodium 1 gm/ (Sodium Chloride) 50 mls @ 100 mls/hr IV Q12H [facility] Last Infusion: 06/13/21 03:03 Dose: 0 mls/hr Documented by: ANTWILLI Azithromycin 500 mg/ Sodium (Chloride) 250 mls @ 125 mls/hr IV Q24H [facility] Last Infusion: 06/12/21 20:15 Dose: 0 mls/hr Documented by: ANTWILLI Metoprolol Succinate (Metoprolol Succinate Er 50 Mg Tab.Er.24h) 50 mg PO DAILY [facility]; Protocol Last Admin: 06/13/21 08:22 Dose: 50 mg Documented by: ANUSHA Pharmacy Consult (Consult Rx Perform Med Rec) 1 each MISCELLANE ONCE PRN PRN Reason: Consult order Sodium Chloride (0.9 % Sodium Chloride Flush 3 Ml Syringe) 3 ml IVFLUSH QSHIFT [facility] Last Admin: 06/13/21 08:21 Dose: 3 ml Documented by: ANUSHA Zinc Sulfate (Zinc Sulfate 220 Mg Capsule) 220 mg PO DAILY [facility] Last Admin: 06/13/21 08:21 Dose: 220 mg Documented by: ANUSHA Labs CBC & Chem 7: 06/12/21 06:18 06/12/21 06:18 Microbiology Microbiology Results: Microbiology 06/10/21 06:15 Blood Culture - Preliminary Blood - Venous No growth after 48 hours. 06/10/21 06:15 Blood Culture - Preliminary Blood - Venous No growth after 48 hours. Assessment and Plan (1) Acute respiratory failure due to COVID-19: Status: Acute (2) DORIS (acute kidney injury): Status: Acute (3) COVID: Status: Acute (4) Atrial fibrillation: Status: Acute Assessment and Plan: 85/male double vaccinated since august, no booster here with covid related acute hypoxic resp failure 1. acute hypoxemic resp failure d/t covid pneumonia--there is persitent hypoxia that is rather severe now on high flow -not candidate remdesevir d/t duration of symptoms -continue IV decadron -continue Baricitinib for 14 days. -Tittrate O2, prononing, incentive spirometry 2. 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 Doris resolved. 3.AFfib:continue metoprolol, apixiban 4. ekg abnormal: trops flat no chest pain nuclear stress test : was normal echo:?1.? Low normal LV systolic function with LVEF of 50-55% ? ? ? 2. Left atrium appears to be enlarged? 3.? Limited cardiac valvular Doppler ? 4.? Normal RV systolic pressure? 5.? No gross pericardial effusion? further workup outpatiently. 5 HLP: continue statin dvt prophylax: with apixiban prognosis is guarded Quality Stroke Does the patient have a stroke diagnosis?: No VTE Prior VTE?: No VTE Risk Level:: Medical - moderate - high VTE Device Contraindication: N/A - Device Ordered VTE Drug Contraindication: N/A - Med Ordered
[2021-06-13] MEDS: Azithromycin 500 MG in 0.9 % Sodium Chloride 250 ML 125 MG IV (20:03)
--- NOTE | 2021-06-13 23:18 | PM.EVENT ---
Event Note Date of Service: 06/28/21 Event Note: Confusion: Likely toxic metabolic encephalopathy. Will obtain a CT head. Hypoxia: Patient is saturating 88%; on high-flow / non-rebreather. ABG showed PH 7.4; pCO2- 27; PO2 72; pt is still tachypneic; abdominal breathing; restless; spoke to Dr Hargrove -supply chain tech-> after evaluation-> pt is Accepted to ICU around 1:00AM on 06/14/21.
[2021-06-13] MEDS: Morphine Sulfate 2 MG/ML CARTRIDGE 1 MG IVPUSH (23:59)
[2021-06-14] VITALS (21 sets, daily range): BP systolic 81–187; BP diastolic 32–82; PULSE 80–130; RESP 22–40; TEMP 37.1–38.3; O2SAT 89–100
[2021-06-14 00:09] LABS: ABG Base Excess -2.7 mmol/L; ABG HCO3 19 mmol/L (22-26); ABG pCO2 27 mmHg (32-45); ABG pH 7.46 (7.35-7.45); ABG pO2 72 mmHg (83-108)
--- NOTE | 2021-06-14 01:03 | P.CONCC_ITS ---
History of Present Illness Data of Consult Service Date: 06/14/21 Requesting physician: David Lang Primary Care Provider: Gail Jessica MD [facility] Reason for consult: hypoxia Pt is a 85YO male with a past med hx of afib on eliquis Who was admitted to this hospital on June 07 with COVID pneumonia and DORIS after having shortness of breath on exertion, cough, chills, body aches and fever for 1 week. Pt was started on Decadron (started on 06/08), ceftriaxone, azithromycin, Baricitinib (started on 06/11) his home meds. patient's oxygen needs progressively increased to point of being maxed out on HFNC and NRB. A few hours ago, his mental status changed, ABG 7.46/27/72/19/-2.7. Dr Vela called Dr Hargrove for an ICU consult. Upon my arrival to the patient's bedside, he was definitely in acute respiratory distress, he was breathing using his belly, he had sternal retractions, face was red, he was staring off looking confused and he thinking he was in [place] and not at [facility]. He then forgot why he was in the hospital and had to be reminded that he had COVID. Per Dr. Hargrove, give judicious amounts of Dilaudid, recommend 0.5 mg Dilaudid p.r.n. for shortness of breath which we gave and we also put the pt on BiPAP and brought him down to the ICU for BiPAP and monitoring. Review of Systems Review of Systems: Yes Unobtainable due to mental status PMFSH Past Medical History Medical History Acute respiratory failure due to COVID-19 Afib Hiatal hernia Family History Family history: reviewed and not pertinent Surgical History Surgical History History of total left knee replacement (TKR) Hx of cholecystectomy Social History Social History Patient Tobacco Use Status: Former Tobacco user Use of substances other than those prescribed or required for medical reasons: No Advance Directives: No Advance Directives Information Provided: No Advance Directives on File: No service: No Current occupational status: retired Meds Allergies Allergy/AdvReac Type Severity Reaction Status Date / Time No Known Allergies Allergy Unverified 03/09/20 19:34 [No Known Allergies*] Active Medications: Current Medications Acetaminophen (Acetaminophen 325 Mg Tablet) 650 mg PO Q6H PRN PRN Reason: Fever Last Admin: 06/11/21 02:36 Dose: 650 mg Documented by: Amlodipine Besylate (Amlodipine Besylate 5 Mg Tablet) 5 mg PO DAILY [facility]; Protocol Last Admin: 06/13/21 08:21 Dose: 5 mg Documented by: Apixaban (Apixaban 5 Mg Tablet) 5 mg PO BID [facility] Last Admin: 06/13/21 21:02 Dose: Not Given Documented by: Atorvastatin Calcium (Atorvastatin Calcium 10 Mg Tablet) 10 mg PO BEDTIME [facility] Last Admin: 06/13/21 21:03 Dose: Not Given Documented by: Baricitinib (Baricitinib 2 Mg Tablet) 2 mg PO DAILY [facility] Stop: 06/24/21 09:01 Last Admin: 06/13/21 08:21 Dose: 2 mg Documented by: Dexamethasone Sodium Phosphate (Dexamethasone Sod Phosphate 4 Mg/Ml Vial) 6 mg IVPUSH DAILY [facility] Last Admin: 06/13/21 08:22 Dose: 6 mg Documented by: Famotidine (Famotidine 20 Mg Tablet) 20 mg PO BEDTIME [facility] Last Admin: 06/13/21 21:03 Dose: Not Given Documented by: Guaifenesin/Codeine Phosphate (Guaifen/Codeine Sf 200/20/10ml 10 Ml Liquid) 5 ml PO Q6H PRN PRN Reason: Cough Last Admin: 06/11/21 16:34 Dose: 5 ml Documented by: Hydromorphone HCl (Hydromorphone Hcl 0.5 Mg/0.5 Ml Syringe) 0.5 mg IVPUSH Q4H PRN; Protocol PRN Reason: Breakthrough Pain Hydromorphone HCl (Hydromorphone Hcl 0.5 Mg/0.5 Ml Syringe) 0.25 mg IVPUSH ONCE ONE; Protocol Stop: 06/14/21 01:03 Ceftriaxone Sodium 1 gm/ (Sodium Chloride) 50 mls @ 100 mls/hr IV Q12H [facility] Last Infusion: 06/13/21 17:59 Dose: Infused Documented by: Azithromycin 500 mg/ Sodium (Chloride) 250 mls @ 125 mls/hr IV Q24H [facility] Last Infusion: 06/13/21 22:32 Dose: Infused Documented by: Metoprolol Succinate (Metoprolol Succinate Er 50 Mg Tab.Er.24h) 50 mg PO DAILY [facility]; Protocol Last Admin: 06/13/21 08:22 Dose: 50 mg Documented by: Morphine Sulfate (Morphine Sulfate 2 Mg/Ml Cartridge) 1 mg IVPUSH Q4H PRN; Protocol PRN Reason: pain/SOB Last Admin: 06/13/21 23:59 Dose: 1 mg Documented by: Pharmacy Consult (Consult Rx Perform Med Rec) 1 each MISCELLANE ONCE PRN PRN Reason: Consult order Sodium Chloride (0.9 % Sodium Chloride Flush 3 Ml Syringe) 3 ml IVFLUSH QSHIFT [facility] Last Admin: 06/13/21 20:37 Dose: 3 ml Documented by: Zinc Sulfate (Zinc Sulfate 220 Mg Capsule) 220 mg PO DAILY [facility] Last Admin: 06/13/21 08:21 Dose: 220 mg Documented by: Home Medications Medication Instructions Recorded Confirmed Last Taken Type apixaban 5 mg tablet 5 mg PO BID 06/12/20 06/07/21 Unknown History metoprolol succinate 50 mg 50 mg PO DAILY 06/12/20 06/07/21 Unknown History tablet,extended release 24 hr omeprazole 20 mg capsule,delayed 20 mg PO DAILY 06/12/20 06/07/21 Unknown History release simvastatin 20 mg tablet 20 mg PO BEDTIME 06/12/20 06/07/21 Unknown History lisinopril 10 mg tablet 1 tab PO DAILY 06/07/21 06/07/21 Unknown History Physical Exam Vital Signs: Vital Signs: Last Vital Signs Temp 98.7 F 06/13/21 23:35 Pulse 104 H 06/13/21 23:35 Resp 22 H 06/13/21 23:35 BP 131/76 06/13/21 23:35 Pulse Ox 93 06/13/21 23:35 BMI result Body Mass Index 29.7 Const: Other: patient lying in bed, looking uncomfortable and distressed General: cooperative, well developed and acute distress moderate and respiratory Orientation/consciousness: oriented to person, No oriented to place and oriented to time Limitations: no limitations and altered mental status HENMT: Head: Yes normal to inspection, Yes normocephalic and Yes atraumatic Ears: hearing grossly normal bilaterally General nose exam: Normal external nose present Face and sinus: Yes normal facial exam Eyes: General: appearance normal, both eyes and all related structures EOM: EOMs intact bilaterally Neck: Neck: Yes normal visual inspection, Yes full ROM, Yes trachea midline and Yes supple Resp: Effort & Inspection: normal respiratory effort, Actively coughing, respiratory distress, retractions supraclavicular, tachypneic and uses accessory muscles Auscultation: diminished lung sounds diffuse Cardio: Rate: tachycardic (106) Rhythm: regular rhythm Heart sounds: normal S1 and S2 GI: Inspection: Yes normal to inspection Palpation (GI): Soft to palpation and nontender Skin: General skin exam: no rashes or lesions noted Neuro: General: oriented to person, No oriented to place and oriented to time Extrem: General: Yes normal to inspection and Yes no pedal edema Results Labs CBC & Chem 7: 06/12/21 06:18 06/12/21 06:18 Microbiology Microbiology Results: Microbiology 06/08/21 16:37 Blood - Venous Blood Culture - Final No growth after 5 days. 06/08/21 16:49 Blood - Venous Blood Culture - Final No growth after 5 days. 06/10/21 06:15 Blood - Venous Blood Culture - Preliminary No growth after 48 hours. 06/10/21 06:15 Blood - Venous Blood Culture - Preliminary No growth after 48 hours. Assessment and Plan (1) Acute respiratory failure due to COVID-19: Status: Acute (2) COVID: Status: Acute (3) DORIS (acute kidney injury): Status: Acute (4) Atrial fibrillation: Status: Acute Placed pt on BiPAP, given 0.25mg dilauded and initially looked less in distress however was pulling large tidal volumes on BiPAP, we gave 50mcg Fentanyl x2 with some improvement in RR, it lowered from 38 to 28 however tidal volumes were not reduced, remaining generally around [id number]. RT called and sh e changed IPAP/EPAP to CPAP then IVAPS but nothing helped reduce the tidal vol. Gave 0.50 Dilauded with no further reduction in RR or tidal volumes. Will get CXR and VBG. Pt still belly breathing although he looks a little more comfortable and is becoming more alert, answering questions about his family, etc. Spoke with Dr Hargrove, he advised incr in tidal vol with belly breathing is 2/2 opioids so let them wear off and should settle down to better tidal volumes. CXR shows increased hazy opacities and VBG showed increase in pO2 to 87. Continue fentanyl/dilauded PRN, continue abx, steroids, Baricitinib, eliquis and other home meds. I spoke with 2 of the patient's 4 daughters, Kalpana (step daughter) and Vijaya (he has 2 other full blood daughters), the both reiterated that the patient is a full code. I called to verify because when the patient was in distress, I asked about intubation and he said he did not want to be intubated. However, his daughter Kalpana said the hospitalist asked him about this earlier in his admission and he said he would want to be intubated. Since he is altered, I wanted to verify with them in the said yes, he is a full code. Kalpana Ha is the electronic parts salesperson, she is his stepdaughter but has some medical knowledge, her phone number is [phone]. Vijaya is his full blood daughter and has to sisters, they gave permission for Kalpana to be the main electronic parts salesperson, however Vijaya said one of her sisters is the HCP and they think he has a form on file with his PCP. I gave Vijaya the PCP son number so they could try to call in the morning and have that paperwork sent to us. The only paperwork they have is unsigned by the patient.
[2021-06-14] MEDS: HYDROmorphone HCl 0.5 MG/0.5 ML SYRINGE 0.25 MG IVPUSH (01:10)
[2021-06-14] MEDS: fentaNYL citrate/PF 100 MCG/2 ML VIAL 50 MCG IVPUSH ×5 (01:57→14:39)
[2021-06-14] MEDS: HYDROmorphone HCl 0.5 MG/0.5 ML SYRINGE IVPUSH (02:30)
[2021-06-14 02:53] LABS: ABG Refer to POC result
[2021-06-14 02:57] LABS: VBG HCO3 19 mmol/L (22-26); VBG pCO2 30 mmHg; VBG pO2 87 mmHg
[2021-06-14 02:57] LABS: Venous Blood Gas Refer to POC result
[2021-06-14 05:40] LABS: VBG HCO3 20 mmol/L (22-26); VBG pCO2 27 mmHg; VBG pH 7.47 (7.32-7.43); VBG pO2 113 mmHg
[2021-06-14 05:45] LABS: Venous Blood Gas Refer to POC result
[2021-06-14 05:57] LABS: Basophils Percent Auto 0.2 % (0-2); Eosinophils Percent Auto 0.1 % (0-4); Hematocrit 39.2 % (42.0-52.0); Hemoglobin 13.2 g/dl (14.0-18.0); Imm Gran Pct Auto 1.5 % (0.0-0.4); Lymphocytes Absolute Auto 0.4 X10*3/uL (1.2-4.9); Lymphocytes Percent Auto 2.2 % (20-40); MANUAL DIFF FLAG SCAN; Mean Corpuscular HGB Conc 33.7 g/dl (31.0-36.0); Mean Corpuscular Hemoglobin 31.1 pg (27.0-33.0); Mean Corpuscular Volume 92.2 fL (80.0-98.0); Mean Platelet Volume 12.3 fL (9.4-12.4); Monocytes Absolute Auto 0.6 X10*3/uL (0.1-1.2); Monocytes Percent Auto 2.8 % (2-11); Neutrophils Absolute Auto 18.6 x10*3/uL (2.0-8.3); Neutrophils Percent Auto 93.2 % (45-73); Red Blood Count 4.25 X10*6/uL (4.60-5.80); Red Cell Distribution Width 13.2 % (11.0-16.0); SCAN SMEAR FLAG 1
[2021-06-14 06:04] LABS: Appearance Urine CLEAR; Color Urine YELLOW; Glucose Urine UA NEG (NEG); Leukocyte Esterase Urine NEG (NEG); Nitrite Urine NEG (NEG); PH 5.5 (5.0-8.0); Specific Gravity - Urine >= 1.030 (1.005-1.025); UACC Culture Trigger NO; Urine Blood 1+ (NEG); Urine Ketones 5 MG/DL (NEG); Urine Protein 1+ MG/DL (NEG-TRACE)
[2021-06-14 06:06] LABS: Platelet Count 89 X10*3/uL (160-400)
[2021-06-14] MEDS: cefTRIAXone sodium 1 GM in 0.9 % Sodium Chloride 50 ML IV ×2 (06:08→15:56)
[2021-06-14 06:12] LABS: Alanine Aminotransferase 135 U/L (0-40); Albumin Level 3.1 g/dL (3.5-5.0); Alkaline Phosphatase 152 U/L (39-117); Anion Gap 16 (12-20); Aspartate Amino Transferase 72 U/L (5-37); Bilirubin Total 1.4 mg/dL (0.0-1.0); Blood Urea Nitrogen 45 mg/dL (9-16); Calcium 8.7 mg/dL (8.4-10.2); Carbon Dioxide 16 mmol/L (22-29); Chloride 112 mmol/L (96-108); Creatinine Clr Calc Pharmacy 39.6; Estimated Glomerular Filt Rate 45; Glucose Random 115 mg/dL (60-115); Potassium 5.1 mmol/L (3.3-5.1); Sodium 139 mmol/L (135-145)
[2021-06-14 06:21] LABS: Amorphous Sediment Urine TRACE /LPF; Mucus Urine TRACE /LPF; Renal Epithelial Cells Urine 1+ /LPF; Squamous Epithelial Cell Urine TRACE /LPF; WBC Urine 0 /HPF (0-4)
[2021-06-14 06:25] LABS: Lactate Dehydrogenase 1290 U/L (118-273)
[2021-06-14 06:43] LABS: SLIDE REVIEW VERIFIED
[2021-06-14 07:09] LABS: Ferritin 1550 ng/mL (20-250)
--- NOTE | 2021-06-14 07:28 | PC.NURSE ---
Emergent transfer from [facility] [place] - patient anxious, RR up to 30-40. Patient put on bipap - elevated TV's up to [id number] - w/ RR in high 20's with bipap on. Fio2 100%. Patient given fentanyl x2 @ 0157, 0215, and then dilaudid at 0230 (see MAR). Patient tolerated mask after receiving medication - TV still high to [id number] - changed bipap settings to AVAPS with PA at bedside. At approx 0600 patient increased agitation again - another dose of fentanyl given with good affect. Telesitter camera placed in room for safety. O2sat low 93-94% on bipap - RR down when sleeping. Naqvi inserted also - UA collected and pending.
[2021-06-14] MEDS: fentaNYL citrate/NS 1,000 MCG/100 ML PLAST..BAG 2.5 MCG IVCONT (07:55)
[2021-06-14] MEDS: 0.9 % Sodium Chloride Flush 3 ML SYRINGE IVFLUSH ×2 (08:22→13:03)
--- NOTE | 2021-06-14 08:55 | PM.CCPN ---
Subjective Subjective Date of Service: 06/14/21 Interval History: Mr. Luciano was transferred down to the ICU early this morning with acute respiratory failure secondary to COVID pneumonia. The patient is an 85-year-old male with history of atrial fibrillation on Eliquis and also chronic renal insufficiency (according to the [facility] labs here; baseline creatinine appears to be about 2.0).? According to the patient's daughter/HCP Vijaya (cell phone [phone]), the patient is generally healthy and robust, fully independent. The patient was fully vaccinated for COVID. ?The patient presented to the ED on June 07 with COVID symptoms times about 6-7 days.? (My estimate of symptom onset date: approximately May 31 or .) ?He was admitted to Medicine and treated with Decadron and baricitinib. ?His oxygenation deteriorated.? Dr. Lang called me this morning requesting evaluation because of increased work of breathing. ?Patient was seen by LEATHA Stone and transferred down to the ICU. ?See the transfer note from early this morning.? Venous blood gas at 05:30 with the patient on BiPAP showed 7.47/27/-2. I saw the patient at about 0730.? He was lethargic and completely washed out.? On avaps BIAPAP 500cc/100%/+6, RR was nearly 40 and he looked like a respiratory arrest was imminent.? We bloused him with fentanyl and his RR came down to 29-30 and he looked much more comfortable.? RR came down to 32, Vt 1200cc, Ve 38L(!), Sat 95%.? We gave him another small bolus of fentanyl and started him on a fentanyl infusion.? RR dropped to 29, Vt went up to 1400cc, and Ve kenji to 42L(!).? HR 103, atrial fibrillation. ?BP 120/74, Temp 99.1? No JVD at 30?.? Chest CTA with normal exp phase.? Soft heart tones, I heard no murmur or gallops.? Abdomen was benign.? Patient had no peripheral edema. LABORATORY DATA:? Below.? Notably, white count up to 20 today, platelet count down to 89,000.? BUN/creatinine 45/1.4, up slightly from yesterday.? Ferritin, LDH, and CRP are up. Chest x-ray from this morning shows dramatic worsening of his COVID pneumonia. Impression: 1. COVID pneumonia.? I?ll up his steroids to solu-medrol 80 mg bid.? He is already anticoagulated.? He can?t take the pills that are part of the [facility] COVID protocol. ?Not much else we can do for him. 2. Bilateral pulmonary infiltrates with ARDS.? Secondary to above. ?Just looking at the chest x-ray, I cannot rule out an element of pulmonary edema.? The patient is too sick to go for CT scan though.? I?ve started him on diuresis (more or less a ?Chikis Gallardo?). 3. Acute hypoxemic respiratory failure. ?Secondary to above.? COVID patients are the only patient's we have seen who developed minute volumes of this level.? Among such patients, we have had no survivors.? Unfortunately, I see no avenue to survival for Mr. Luciano, whether we intubate and ventilate him or not.? Furthermore, I don?t see any specific reason to think that his recent deterioration is due to VTE/PE. 4. Atrial fibrillation.? On Eliquis. 5. CKD.? Current renal indices are better than baseline. 6. ID:? WBC is up today, but the patient has had a typical course for COVID, ?I don?t see any reason to think he has a bacterial pneumonia. Called the patient's daughter Vijaya and had a couple long telephone conversations with her.? She is familiar with the news.? She knows that survival for an elderly person who goes on the ventilator is poor.? I advised her that I did not think her father was going to survive regardless of what we did, and therefore I would advise simply pushing the envelope with BiPAP in seen what we could do, because tracheal intubation was virtually certainly going to culminate in his nonsurvival.? She agreed on no intubation and no CPR. ADDENDUM:? The patient?s family came in this morning and they also spent time in the patient's room.? Then we spoke for some time in the waiting area.? I answered all the questions.? We agreed to continue no intubation/no CPR status. ADDENDUM at 14:20:? Earlier the patient had a brief episode of apnea.? He later had a 3 sec asystolic pause. ?He is clearly weaker.? He is obtunded. ?He is hypotensive.? I have started him on Gurinder-Synephrine.? I will not put a central line in (no benefit). ?We?re doing as much for him as is reasonable, but unfortunately his survival is not likely.? The way he looks, I?m doubtful he?ll make it through the day.? I called Vijaya again with an update. Critical care time:? 2.5+ hrs. ADDENDUM at 16:45: The patient stopped breathing and then became asystolic at 16:23 and was pronounced at that time. I called Vijaya again and let her know. Critical Care Time (minutes): 150 Physical Exam Vital Signs: Vital Signs: Last Vital Signs Temp 99.1 F 06/14/21 08:00 Pulse 117 H 06/14/21 08:00 Resp 30 H 06/14/21 08:29 BP 149/61 H 06/14/21 08:00 Pulse Ox 94 06/14/21 08:00 BMI result Body Mass Index 29.7 Objective Data Labs CBC & Chem 7: 06/14/21 05:28 06/14/21 05:28 Labs: Laboratory Results - last 24 hr 06/14/21 06/14/21 06/14/21 00:02 02:52 05:15 WBC RBC Hgb Hct MCV MCH MCHC RDW Plt Count MPV Immature Gran % (Auto) Neut % (Auto) Lymph % (Auto) [place] % (Auto) Eos % (Auto) Baso % (Auto) Lymph # (Auto) [place] # (Auto) Eos # (Auto) Baso # (Auto) Abs Immat Gran (auto) Absolute Neuts (auto) Absolute Nucleated RBC Nucleated RBC % (auto) Smear Tech's Comments O2 Saturation 92.0 ABG pH at Pt Temp 7.46 H ABG pCO2 at Pt Temp 27 L ABG pO2 at Pt Temp 72 L ABG HCO3 19 L ABG Base Excess (Actual) -2.7 VBG pH 7.40 VBG pCO2 30 VBG pO2 87 VBG HCO3 19 L VBG O2 Saturation 94.0 VBG Base Excess -4.0 Sodium Potassium Chloride Carbon Dioxide Anion Gap BUN Creatinine Estim Creat Clear Calc Estimated GFR Random Glucose Calcium Ferritin Total Bilirubin AST ALT Alkaline Phosphatase Lactate Dehydrogenase C-Reactive Protein Total Protein Albumin Urine Color YELLOW Urine Appearance CLEAR Urine pH 5.5 Ur Specific Downs >= 1.030 H Urine Protein 1+ H Urine Glucose (UA) NEG Urine Ketones 5 Urine Blood 1+ H Urine Nitrite NEG Ur Leukocyte Esterase NEG Urine RBC 5-9 H Urine WBC 0 Ur Squamous Epith Cells TRACE Ur Renal Epithelial Cell 1+ Amorphous Sediment TRACE Urine Bacteria NONE Hyaline Casts 1-4 Granular Casts 5-9 Urine Mucus TRACE 06/14/21 06/14/21 06/14/21 05:28 05:28 05:34 WBC 20.0 H RBC 4.25 L Hgb 13.2 L Hct 39.2 L MCV 92.2 MCH 31.1 MCHC 33.7 RDW 13.2 Plt Count 89 L D MPV 12.3 Immature Gran % (Auto) 1.5 H Neut % (Auto) 93.2 H Lymph % (Auto) 2.2 L [place] % (Auto) 2.8 Eos % (Auto) 0.1 Baso % (Auto) 0.2 Lymph # (Auto) 0.4 L [place] # (Auto) 0.6 Eos # (Auto) 0.0 Baso # (Auto) 0.0 Abs Immat Gran (auto) 0.30 H Absolute Neuts (auto) 18.6 H Absolute Nucleated RBC 0.000 Nucleated RBC % (auto) 0.0 Smear Tech's Comments VERIFIED O2 Saturation ABG pH at Pt Temp ABG pCO2 at Pt Temp ABG pO2 at Pt Temp ABG HCO3 ABG Base Excess (Actual) VBG pH 7.47 H VBG pCO2 27 VBG pO2 113 VBG HCO3 20 L VBG O2 Saturation 98.0 VBG Base Excess -2.0 Sodium 139 Potassium 5.1 Chloride 112 H Carbon Dioxide 16 L Anion Gap 16 BUN 45 H Creatinine 1.48 H Estim Creat Clear Calc 39.6 Estimated GFR 45 Random Glucose 115 Calcium 8.7 Ferritin 1550 H Total Bilirubin 1.4 H AST 72 H ALT 135 H Alkaline Phosphatase 152 H D Lactate Dehydrogenase 1290 H C-Reactive Protein 9.60 H Total Protein 6.0 L Albumin 3.1 L Urine Color Urine Appearance Urine pH Ur Specific Downs Urine Protein Urine Glucose (UA) Urine Ketones Urine Blood Urine Nitrite Ur Leukocyte Esterase Urine RBC Urine WBC Ur Squamous Epith Cells Ur Renal Epithelial Cell Amorphous Sediment Urine Bacteria Hyaline Casts Granular Casts Urine Mucus Microbiology Microbiology Results: Microbiology 06/08/21 16:37 Blood - Venous Blood Culture - Final No growth after 5 days. 06/08/21 16:49 Blood - Venous Blood Culture - Final No growth after 5 days. 06/10/21 06:15 Blood - Venous Blood Culture - Preliminary No growth after 48 hours. 06/10/21 06:15 Blood - Venous Blood Culture - Preliminary No growth after 48 hours. Quality Stroke Does the patient have a stroke diagnosis?: No VTE Prior VTE?: No VTE Risk Level:: Medical - moderate - high VTE Device Contraindication: N/A - Device Ordered VTE Drug Contraindication: N/A - Med Ordered Critical Care Time Critical Care Time (minutes): 150
[2021-06-14] MEDS: Furosemide 100 MG/10 ML VIAL 60 MG IVPUSH (09:00)
[2021-06-14] MEDS: dexmedeTOMIDidine HCL/NS 400 MCG/100 ML INFUS..BTL 10.77 MCG IVCONT (09:10)
[2021-06-14] MEDS: Furosemide 200 MG in 0.9 % Sodium Chloride 80 ML IVCONT (10:12)
[2021-06-14] MEDS: methylPREDNISolone Sod Succ 125 MG/2 ML VIAL 80 MG IVPUSH (12:55)
[2021-06-14] MEDS: Phenylephrine HCL 20 MG in 0.9 % Sodium Chloride 250 ML 32.58 MG IVCONT (13:01)
[2021-06-14] MEDS: Phenylephrine HCL 20 MG in 0.9 % Sodium Chloride 250 ML 293.2 MG IVCONT ×2 (14:55→15:57)
--- NOTE | 2021-06-14 16:01 | MHC.CM.PN ---
Patient remains in ICU via Bipap. Per Dr Hargrove, very poor prognosis. Patient's family will be in to see patient. Patient is from home without services. Continue to monitor for d/c needs.
--- NOTE | 2021-06-14 16:33 | PC.NURSE ---
Addendum entered by Tanya Arvizu RN 06/14/21 17:14: pt at 1623 Addendum entered by Tanya Arvizu RN 06/14/21 17:09: pts family brought all belongings home Original Note: at 0745 woody, pt agonal breathing, abd muscle use. MD to bedside, fentanyl given per MD and gtt started. MD called family, code changed from FULL to DNR/DNI. Family came in bedside to see pt and have family meeting. Decision to keep dnr/dni. PRecedex gtt and lasix gtt titrated per EMAR, phenylephrine started and titrated for map >65. at 1600 pt began becoming apneic and hypotensive, md to bed side, pt allie down, asystolic and PEA on monitor, md aware, called family.
--- NOTE | 2021-06-14 20:49 | P.DN_ITS ---
Discharge Sum: Prov Provider Primary care physician: Gail Jessica MD Admitting clinician: Maureen Ramos Attending physician on admission: Maureen Ramos Consults: 06/07/21 15:52 Consult to Infectious Diseases Routine Consulting Provider: Angélica Saini Reason for consultation: covid pneumonia Has provider been notified: No 06/11/21 08:36 Consult to Pulmonology Routine Consulting Provider: Greg Berrios Reason for consultation: acute hypoxemic respriatory failure sec tocovid Has provider been notified: No Pronouncing clinician: Brad Hargrove Discharge Sum: Diag PCOD Cause of : Acute respiratory failure due to COVID-19 Contributing Factors (1) Acute respiratory failure due to COVID-19: (2) COVID: (3) DORIS (acute kidney injury): (4) Atrial fibrillation: Discharge Sum: Summary Date and Time Date of admission: 06/08/21 10:31 Date of : 06/14/21 Time of : 16:23 Summary Details: as per Dr Hargrove, pt passed peacefully on Fentanyl drip Additional Data Confirmation of as documented by pronouncing clinician: no pulse, no respirations, no heart sounds and pupils fixed and dilated Family: at bedside (earlier in the day) and contacted Attending/PCP notified?: Yes Attending physician: Brad Hargrove MD Was code activated?: No Autopsy requested?: No health claims examiner notified?: No Organ bank notified?: Yes Advance directives: No Hospice patient?: No
== END 2021-06-14 18:43 | disposition expired | DRG 871 ==
LOC: HO.ED 16:10 → HO.EDOVER 16:22 → HO.IMC 16:28 → HO.ICU 06-14 01:14
PROVIDERS: Hospitalist; Internal Medicine; Physician Assistant; Admitting Provider Internal Medicine; Emergency Provider Emergency Medicine; PCP Internal Medicine; Visit Provider Physician Assistant
DX: A41.89 Other specified sepsis (principal); U07.1 COVID-19; G92.8 Other toxic encephalopathy; J80 Acute respiratory distress syndrome; J12.82 Pneumonia due to coronavirus disease 2019; N17.9 Acute kidney failure, unspecified; I48.20 Chronic atrial fibrillation, unspecified; R94.31 Abnormal electrocardiogram [ECG] [EKG]; I12.9 Hypertensive chronic kidney disease with stage 1 through stage 4 chronic kidney disease, or unspecified chronic kidney disease; N18.30 Chronic kidney disease, stage 3 unspecified; E86.0 Dehydration; E78.5 Hyperlipidemia, unspecified; Z79.01 Long term (current) use of anticoagulants; Z79.899 Other long term (current) drug therapy; Z66 Do not resuscitate
CPT/HCPCS: 36415; 71045; 71250; 80048; 80053; 80076; 81001; 81003; 82728; 82803; 83605; 83615; 83880; 84145; 84484; 85025; 85027; 85610; 85730; 86140; 86769; 87040; 87635; 93005; 93308; 94660; 96361; 96374; 99285; J0456; J0696; J1100; J1170; J1940; J2270; J2370; J2930; J3010